=== PATIENT | male | born 1940 | race Caucasian/White ===

== ENCOUNTER 2019-02-06 10:02 | Observation (INO) ==
[2019-02-06] MEDS ORDERED: PANTOprazole 80 MG in DEXTROSE 5% 100 ML IV ONE (10:30)
[2019-02-06 10:56] LABS: Basophils # (auto) 0.03 K/uL (0-0.2); Basophils % (auto) 0.4 %; Eosinophils # (auto) 0.05 K/uL (0-0.5); Eosinophils % (auto) 0.7 %; Hematocrit (blood only) 31.4 % (42-52); Hemoglobin 10.9 g/dL (14.0-18.0); Immature Granulocytes # (auto) 0.01 K/uL (0.00-0.02); Immature Granulocytes % (auto) 0.1 %; Lymphocytes # (auto) 1.11 K/uL (1.2-3.4); Lymphocytes % (auto) 15.7 %; Mean Corpuscular Hemoglobin 31.4 pg (25-34); Mean Corpuscular Hgb Conc 34.7 g/dL (32-36); Mean Corpuscular Volume 90.5 fL (80-100); Mean Platelet Volume 10.8 fL (7.4-10.4); Monocytes # (auto) 0.84 K/uL (0.11-0.59); Monocytes % (auto) 11.9 %; Neutrophils # (auto) 5.04 K/uL (1.4-6.5); Neutrophils % (auto) 71.2 %; Platelet Count 179 K/uL (130-400); RDW Coefficient of Variation 14.1 % (11.5-14.5); RDW Standard Deviation 46.5 fL (36.4-46.3); Red Blood Count 3.47 M/uL (4.7-6.1); White Blood Count 7.08 K/uL (4.8-10.8)
[2019-02-06 11:14] LABS: Albumin Level 3.5 gm/dl (3.4-5.0); BUN Creatinine Ratio 22.5 (10-20); Calcium 8.7 mg/dl (8.5-10.1); Creatinine Clr Calc Pharmacy 51.4 ml/min; Est GFR (African American) 72.8; Est GFR (Non-African American) 62.8; INR 1.1 (0.9-1.1); Partial Thromboplastin Ratio 0.8; Partial Thromboplastin Time 22.1 Seconds (21.0-31.0); Potassium 4.1 mmol/L (3.5-5.1); Prothrombin Time 11.3 Seconds (9.0-12.0)
[2019-02-06 11:17] LABS: Albumin Globulin Ratio 1.1 (0.9-2); Bilirubin,Total 0.4 mg/dl (0.2-1); Globulin 3.2 gm/dl (2.5-4.0); Total Protein 6.7 gm/dl (6.4-8.2)
--- NOTE | 2019-02-06 11:23 | Gastrointestinal Consultation ---
Date of Consultation February 06, 2019 Assessment & Plan (1) Melena: (2) Anemia: (3) Status post dilation of esophageal narrowing: Pt is a 78 y/o male seen for anemia, melena, s/p series of esophageal dilation for Schatzki ring last done on 02/04/19 by up to 18mm by Dr. Matias. - NPO - PPI bolus and gtt - Plan for EGD eval tomorrow given pt ate solids this AM - Monitor H/H and trasnfuse prn - Will defer chest imaging at this time to r/o perforation, unless he develops chest pain symptoms Supervising Physician Co-Signing Physician Notes I saw and evaluated the patient. The patient underwent upper endoscopy with esophageal dilation on Monday. This was notable for a small rent at an esophageal ring. Yesterday the patient noted that he had dark sticky stool past 1 time. A blood count was performed showing that his hemoglobin had dropped from 45-32. The patient notes that today he had one additional passage of dark sticky stool and his hemoglobin has remained stable this morning. He denies having any nausea vomiting fevers chills or hematemesis. He did have a full breakfast this morning which consisted of oatmeal with 2 bananas. Physical examination Elderly male in no apparent distress Abdomen soft Impression: Patient with what appears to be bleeding after recent esophageal dilation. It is reassuring that the patient is not having hematemesis nor does he have evidence of perforation as he has no chest pain or abdominal discomfort. As the patient did have a full meal this morning we would recommend use of a Protonix drip. We will have the patient scheduled for upper endoscopy further evaluation of the melena. Recommendations N.p.o. Avoid anticoagulants Protonix drip Upper endoscopy arranged for next available which will be tomorrow morning History of Present Illness Reason for Consultation: Black stools; hx of EGD w dilation on 02/04 Requesting Physician: Dr. Paul Ibrahim Attending Physician: Dr. Gomez Freire History of Present Illness Pt is a 78 y/o male who presented to ED w c/o black stools x 2 days. Had EGD w dilation up to 18mm for Schatzki's ring on 02/04/[address] Matias. Yesterday he was having BM and noticed black, sticky stools w some dark blood around it. He also had associated symptoms of light headedness, feeling well. Denies any CP, SOB, abd pain, n/v. He had total of 2 similar looking black stools yesterday and again today. He denies being on blood thinners, noted ASA 325mg use but reports hasn't been on it for years. He does take Ferrous Sulfate 1 tab but hasn't used this in months. Denies use of Peptobismol. Denies NSAIDs. Upon eval, blood ct showed H/H 10.9/31.4, PLt 179, INR 1.1. BUN mildly up at 25. H/H yesterday (outpt) He had been able to eat and denies any abd pain or chest pain these last few d ays. He last ate around 8AM today - oatmeals Allergies Allergy/AdvReac Type Severity Reaction Status Date / Time No Known Allergies Allergy Unverified 02/06/19 10:33 Home Medications Home Medications Medication Instructions Recorded Confirmed Type allopurinol 100 mg PO DAILY 02/06/19 02/06/19 History amlodipine 10 mg PO DAILY 02/06/19 02/06/19 History aspirin, buffered 325 mg PO DAILY 02/06/19 02/06/19 History coenzyme Q10 [Co Q-10] 0 mg PO DAILY 02/06/19 02/06/19 History cyanocobalamin (vitamin B-12) 0 mcg PO DAILY 02/06/19 02/06/19 History [Vitamin B-12] latanoprost 1 drp OPHTHALMIC (EYE) PM 02/06/19 02/06/19 History Patient History Medical History Gout (Chronic) Schatzki's ring (Chronic) HTN (hypertension) (Chronic) Schatzki's ring Family History Other No significant family history Social History Feels Safe at Home: Yes Smoking Status: Former smoker Review of Systems Review of Systems: All systems reviewed & are unremarkable except as noted in HPI & below Physical Exam Constitutional: WD/WN, vitals as above well groomed, cooperative and comfortable Eyes: PERRL, conjunctivae normal, anicteric sclerae ENMT: external ear and nose normal, oropharynx normal Respiratory: normal respiratory effort, lungs clear to auscultation Cardiovascular: RRR, no murmur, no edema Gastrointestinal (Abdomen): normal bowel sounds, soft, nontender, no hepatosplenomegaly Skin: no rashes, warm and dry no jaundice Neurologic: Motor/Sensory: no asterixis Psychiatric: A+Ox3, euthymic affect Lymphatic: no lymphedema Results & Data Vital Signs (Past 12 Hours) Vital Signs Temp Pulse Resp BP Pulse Ox 02/06/19 10:08 36.6 C 37 L 20 112/68 100 Laboratory Results 02/06/19 02/06/19 02/06/19 10:35 10:35 10:35 WBC 7.08 RBC 3.47 L Hgb 10.9 L Hct 31.4 L MCV 90.5 MCH 31.4 MCHC 34.7 RDW Std Deviation 46.5 H RDW Coeff of Izabel 14.1 Plt Count 179 MPV 10.8 H Immature Gran % (Auto) 0.1 Neut % (Auto) 71.2 Lymph % (Auto) 15.7 [place] % (Auto) 11.9 Eos % (Auto) 0.7 Baso % (Auto) 0.4 Immature Gran # (Auto) 0.01 Neut # (Auto) 5.04 Lymph # (Auto) 1.11 L [place] # (Auto) 0.84 H Eos # (Auto) 0.05 Baso # (Auto) 0.03 PT 11.3 INR 1.1 APTT 22.1 PTT Ratio 0.8 Sodium 140 Potassium 4.1 Chloride 107 Carbon Dioxide 27 Anion Gap 6.0 BUN 25 H Creatinine 1.11 Est Cr Clr Drug Dosing 51.4 Est GFR ( Amer) 72.8 Est GFR (Non-Af Amer) 62.8 BUN/Creatinine Ratio 22.5 H Glucose 108 H Calcium 8.7 Total Bilirubin 0.4 AST 23 ALT 32 Alkaline Phosphatase 45 Total Protein 6.7 Albumin 3.5 Globulin 3.2 Albumin/Globulin Ratio 1.1
--- NOTE | 2019-02-06 11:44 | Emergency Department Note ---
Entered by Ani Smalls acting as a scribe for Paul Marie DO History of Present Illness General Chief complaint: Illness Stated complaint: BLEEDING THROAT Time Seen by Provider: 02/06/19 10:04 Source: patient History of Present Illness Onset (ago): day(s) 1 Location: abdomen Pain Consistency: + other (episode) Quality: + other (blood in stool ) Associated symptoms: + weakness The patient is a 78 year old male who presents to the Emergency Room with complaints of an episode of blood in the patient's stool that began yesterday morning. The patient reports he got his throat stretched on January [address] Matias, and the patient believes the blood in the stool may be a result from that. The patient also notes he had a blood test yesterday done at [facility] that showed he was anemic. The patient also reports of weakness. Home Medications Home Medications Medication Instructions Recorded Confirmed Type allopurinol 100 mg PO DAILY 02/06/19 02/06/19 History amlodipine 10 mg PO DAILY 02/06/19 02/06/19 History aspirin, buffered 325 mg PO DAILY 02/06/19 02/06/19 History coenzyme Q10 [Co Q-10] 0 mg PO DAILY 02/06/19 02/06/19 History cyanocobalamin (vitamin B-12) 0 mcg PO DAILY 02/06/19 02/06/19 History [Vitamin B-12] latanoprost 1 drp OPHTHALMIC (EYE) PM 02/06/19 02/06/19 History Allergies Allergy/AdvReac Type Severity Reaction Status Date / Time No Known Allergies Allergy Unverified 02/06/19 10:33 Past Med/Surg History Medical History Schatzki's ring Family History Other No significant family history Social History Feels Safe at Home: Yes Smoking Status: Former smoker Review of Systems See HPI for pertinent positives & negatives. and A total of 10 systems reviewed and were otherwise negative Physical Exam Vital Signs Vital Signs - 24 hr 02/06/19 10:08 Temperature 36.6 C Temperature Source Oral Sepsis Action Taken by Nursing No Action Required Pulse Rate 37 L Respiratory Rate 20 Respiratory Effort / Characteristics Non-Labored Respiratory Depth Normal Respiratory Pattern Regular Blood Pressure 112/68 Blood Pressure Mean 82 Pulse Oximetry 100 Oxygen Delivery Method Room Air CONSTITUTIONAL/VITAL SIGNS: Reviewed / noted above. GENERAL: Non-toxic in appearance. INTEGUMENTARY: Warm, dry, and [place]. HEAD: Normocephalic. EYES: without scleral icterus or trauma. ENT/OROPHARYNX: clear and moist. LYMPHADENOPATHY/NECK: Is supple without lymphadenopathy or meningismus. RESPIRATORY: Lungs clear and equal. CARDIOVASCULAR: Regular rate and rhythm. GI/ABDOMEN: Soft and nontender. No organomegaly or pulsatile mass. No rebound or guarding. Normal bowel sounds. RECTAL: Dark, bloody heme positive stool. EXTREMITIES: Warm and well perfused. BACK: No CVA tenderness. NEUROLOGICAL: Intact without focal deficits. PSYCHIATRIC: normal affect. MUSCULOSKELETAL: Normally developed with good muscle tone. Course 1014: Past medical records reviewed. The patient was evaluated in room A3. A complete history and physical exam was performed. 1107: I reevaluated and updated the patient. 1112: I discussed the patient's case with Leonie DOMINGUEZ. She recommends overnight observation. 1117: I reviewed the patient's case with Tamiko Rodriguez. Dr. Jamin Rodriguez will evaluate the patient for further management. Consultations Consultation #1: I discussed the patient's case with Leonie DOMINGUEZ. She recommends overnight observation. Time: 11:12 Consultation #2: I reviewed the patient's case with Tamiko Rodriguez. Dr. Jamin Rodriguez will evaluate the patient for further management. Time: 11:17 Administered Medications Discontinued Medications Pantoprazole Sodium 80 mg/ (Dextrose) 120 mls @ 480 mls/hr IV NOW ONE Stop: 02/06/19 10:44 Last Admin: 02/06/19 11:33 Dose: 480 mls/hr Documented by: [id number] Medical Decision Making Differential Diagnosis Differential diagnosis: Etiologies such as diverticulosis, AVM, coagulopathy, colitis, inflammatory bowel disease, malignancy, Arlin-Philip tear, esophagitis, peptic ulcer disease, variceal bleed, gastritis, epistaxis, fissure, hemorrhoids, aswell as others were entertained. Medical Records Attestation: I reviewed the patient's medical records. Home Medications Current Medication List: was personally reviewed by me Laboratory Data Attestation: I reviewed the patient's lab results. Result diagrams: 02/06/19 10:35 02/06/19 10:35 Lab Results 02/06/19 02/06/19 02/06/19 Range/Units 10:35 10:35 10:35 WBC 7.08 (4.8-10.8) K/uL RBC 3.47 L (4.7-6.1) M/uL Hgb 10.9 L (14.0-18.0) g/dL Hct 31.4 L (42-52) % MCV 90.5 (80-100) fL MCH 31.4 (25-34) pg MCHC 34.7 (32-36) g/dL RDW Std Deviation 46.5 H (36.4-46.3) fL RDW Coeff of Izabel 14.1 (11.5-14.5) % Plt Count 179 (130-400) K/uL MPV 10.8 H (7.4-10.4) fL Immature Gran % (Auto) 0.1 % Neut % (Auto) 71.2 % Lymph % (Auto) 15.7 % [place] % (Auto) 11.9 % Eos % (Auto) 0.7 % Baso % (Auto) 0.4 % Immature Gran # (Auto) 0.01 (0.00-0.02) K/uL Neut # (Auto) 5.04 (1.4-6.5) K/uL Lymph # (Auto) 1.11 L (1.2-3.4) K/uL [place] # (Auto) 0.84 H (0.11-0.59) K/uL Eos # (Auto) 0.05 (0-0.5) K/uL Baso # (Auto) 0.03 (0-0.2) K/uL PT 11.3 (9.0-12.0) Seconds INR 1.1 (0.9-1.1) APTT 22.1 (21.0-31.0) Seconds PTT Ratio 0.8 Sodium 140 (136-145) mmol/L Potassium 4.1 (3.5-5.1) mmol/L Chloride 107 (98-107) mmol/L Carbon Dioxide 27 (21-32) mmol/L Anion Gap 6.0 (3-11) BUN 25 H (7-18) mg/dl Creatinine 1.11 (0.6-1.4) mg/dl Est Cr Clr Drug Dosing 51.4 ml/min Est GFR ( Amer) 72.8 Est GFR (Non-Af Amer) 62.8 BUN/Creatinine Ratio 22.5 H (10-20) Glucose 108 H (70-99) mg/dl Calcium 8.7 (8.5-10.1) mg/dl Total Bilirubin 0.4 (0.2-1) mg/dl AST 23 (15-37) U/L ALT 32 (12-78) U/L Alkaline Phosphatase 45 (45-117) U/L Total Protein 6.7 (6.4-8.2) gm/dl Albumin 3.5 (3.4-5.0) gm/dl Globulin 3.2 (2.5-4.0) gm/dl Albumin/Globulin Ratio 1.1 (0.9-2) ECG Data Attestation: I personally reviewed and interpreted this ECG as follows: Indication: weakness Rate (beats per minute): 64 Rhythm: sinus rhythm Findings: + PVC; no ST elevation MDM Narrative This is a 78-year-old male who presents to the ED with a chief complaint of rectal bleeding. The patient had his esophagus dilated on Monday. The patient states that he has been feeling somewhat weak and has noticed rectal bleeding since that time. The patient had his hemoglobin checked yesterday and it was 11.0. It was 15.6 on January 12. Because of this change in hemoglobin and his symptoms, he was sent in for evaluation. The patient does have some gross dark blood on rectal exam. His hemoglobin today is 10.5. Chemistry panel was otherwise unremarkable. The patient was seen by the GI service, nurse practitioner Agusto, saw the patient in the ED. The patient will be observed o vernight for further evaluation and care by the hospitalist service. Impression & Plan Acute upper GI bleed, Anemia Discharge Plan Visit Data Chief Complaint: Illness Stated Complaint: BLEEDING THROAT ED Provider: Paul Marie Discharge Problem: Acute upper GI bleed, Anemia Patient Disposition: Being Evaluated by Hospitalist Forms Stand Alone Forms: My [facility] Prescriptions Prescriptions: No Action latanoprost 0.005 % Drops 1 drp OPHTHALMIC (EYE) PM RF: 0 cyanocobalamin (vitamin B-12) [Vitamin B-12] 1,000 mcg Tablet PO DAILY RF: 0 aspirin, buffered 325 mg Tablet 325 mg PO DAILY RF: 0 allopurinol 100 mg Tablet 100 mg PO DAILY RF: 0 amlodipine 10 mg Tablet 10 mg PO DAILY RF: 0 coenzyme Q10 [Co Q-10] 100 mg Capsule PO DAILY RF: 0 Referrals Referrals: Jonnathan Darby [Primary Care Provider] - The scribe's documentation has been prepared under my direction and personally reviewed by me in its entirety. I confirm that the note above accurately reflects all work, treatment, procedures, and medical decision making performed by me.
[2019-02-06] MEDS: PANTOprazole 40 MG in DEXTROSE 5% 100 ML IV SCH ×3 (11:51→22:41)
--- NOTE | 2019-02-06 12:11 | History & Physical Report ---
Date of Service February 06, 2019 Assessment & Plan (1) Melena: (2) Status post dilation of esophageal narrowing: Pt is 78 y/o M with PMH HTN, gout, Schatzki ring presented with c/o melena started yesterday. Reported 2 black color formed stools yesterday with red color toilet water and 1 formed black color stool today. Yesterday reported dizziness, diaphoresis. Hx Schatzki ring, H/O upper endoscopy with dilation on 01/22/2019 Dr Matias with reported small tear at 15 mm and moderate mucosal disruption after 16 mm on 02/04/2019. 02/04/19 upper endoscopy with dilation with reported mild mucosal disruption. In ER pt afebrile, BP: 112/68, no leukocytosis, H/H: 10. (yesterday H/H: , unsure what pt's baseline is), BUN: 25, Cr: 1.1, GFR: 62 -Protonix drip -NPO -Monitor H&H -Type and cross and hold -GI consult, recommends NPO and planned EGD tomorrow -Monitor CBC, BMP (3) Bradycardia: Initial pulse recorded 37 at ER triage. During ER course pulse in 60's. Pt without any current dizziness, CP, SOB. Is alert and oriented -Monitor on tele (4) HTN (hypertension): -Continue amlodipine with holding parameters (5) Gout: Pt denies recent flares Previously prescribed allopurinol, however reports has not been using for while DVT Prophylaxis -SCDs Full Code as per discussion with pt Follows with Dr Jonnathan Darby in [place] for routine care Pt was seen and care coordinated with Dr Cespedes. See addendum History of Present Illness Chief Complaint: Melena Primary Care Provider: Jonnathan Darby Pt is 78 y/o M with PMH HTN, gout, Schatzki ring presented to ER with c/o melena started yesterday. Patient with history Schatzki ring and on 01/22/2019 had upper endoscopy with dilation by Dr Matias with reported small tear at 15 mm and moderate mucosal disruption after 16 mm on 02/04/2019. Also with upper endoscopy with dilation with reported mild mucosal disruption. Pt reports after procedure he was able to swallow without difficulty and has been eating solid and liquid foods without any dysphagia. Reports had 2 BMs yesterday which were black in coloration and had red-colored tinge to toilet water. Patient states yesterday he felt dizzy and sweaty when having BM. Denies any syncope. This morning with formed BM also reported as dark black color stool. Denies any abdominal pain, nausea or vomiting. States feels tired. Patient states yesterday took aspirin 325 mg. Reports his been taking this medication for years at prior recommendation PCP. Patient reports this morning took 1 tablet of ibuprofen. Denies taking NSAIDs usually. Usually drinks 1 beer a day, last use 02/02/19. reports ate this morning. Pt reports hx colonscopy [place] [address] Child at [facility]. Denies fever/chills, CATES, dizziness, syncope, vision changes, neck pain, CP, SOB, orthopnea, palpitations, cough, sore throat, choking, otalgia, rhinorrhea, paresthesias, weakness, extremity weakness, extremity edema, rashes, urinary symptoms. Allergies Allergy/AdvReac Type Severity Reaction Status Date / Time No Known Allergies Allergy Unverified 02/06/19 10:33 Home Medications Home Medications Medication Instructions Recorded Confirmed Type allopurinol 100 mg PO DAILY 02/06/19 02/06/19 History amlodipine 10 mg PO DAILY 02/06/19 02/06/19 History aspirin, buffered 325 mg PO DAILY 02/06/19 02/06/19 History coenzyme Q10 [Co Q-10] 0 mg PO DAILY 02/06/19 02/06/19 History cyanocobalamin (vitamin B-12) 0 mcg PO DAILY 02/06/19 02/06/19 History [Vitamin B-12] latanoprost 1 drp OPHTHALMIC (EYE) PM 02/06/19 02/06/19 History Past Med/Surg History Medical History Gout (Chronic) Schatzki's ring (Chronic) HTN (hypertension) (Chronic) Surgical History History of lumbar surgery (Chronic) History of cholecystectomy (Chronic) History of esophagogastroduodenoscopy (EGD) (Chronic) 01/22/19, 02/04/[address] Matias Family History Mother Stroke Social History Feels Safe at Home: Yes Smoking Status: Former smoker Smoking End Date: ; Hx Alcohol Use: Yes (1 beer a day) Hx Substance Use: No Review of Systems Review of Systems: All systems reviewed & are unremarkable except as noted in HPI & below Physical Exam Physical Exam: General: no distress, WDWN Head: normocephalic, atraumatic Eyes: PERRL, EOM's intact, conjunctiva non-injected, anicteric ENT: normal inspection external ears, nose, mucous membranes moist Neck: supple, trachea midline, non-tender Lungs: clear, no respiratory distress, no wheezing/rhonchi/rales CV: RRR, no murmur, no pretibial edema Abd: normal BS, soft, non-tender Ext: no cyanosis, no calf tenderness Neuro: A&O x 3, no focal deficits noted, normal affect Skin: warm, dry Results & Data Vital Signs (Past 12 Hours) Vital Signs Temp Pulse Pulse Resp BP Pulse Ox 02/06/19 11:52 67 67 17 97 02/06/19 10:08 36.6 C 37 L 20 112/68 100 Laboratory Results Short CBC 02/06/19 Range/Units 10:35 WBC 7.08 (4.8-10.8) K/uL Hgb 10.9 L (14.0-18.0) g/dL Hct 31.4 L (42-52) % Plt Count 179 (130-400) K/uL BMP 02/06/19 10:35 Sodium 140 Potassium 4.1 Chloride 107 Carbon Dioxide 27 BUN 25 H Creatinine 1.11 Glucose 108 H Calcium 8.7 Liver Function 02/06/19 Range/Units 10:35 Total Bilirubin 0.4 (0.2-1) mg/dl AST 23 (15-37) U/L ALT 32 (12-78) U/L Alkaline Phosphatase 45 (45-117) U/L Albumin 3.5 (3.4-5.0) gm/dl ECG Rate (beats per minute): 64 Rhythm: sinus rhythm Findings: + PVC Code Status & VTE Plan VTE Prophylaxis Plan VTE Prophylaxis will be ordered: Yes Supervising Physician Co-Signing Physician Notes Patient is a 78-year-old male with history of Schatzki's ring who recently had endoscopic and dilatation of the ring for dysphasia by Dr. Matias 2 days ago presents with history of melena and bright red blood per rectum since 2 days duration. Patient had mild mucosal disruption on prior endoscopy. He admits to taking 1 dose of ibuprofen for chronic pain. Patient is also on aspirin 325 mg daily. He states having dizziness yesterday associated with diaphoresis. Patient denies any history of nausea vomiting, chest pain, dysphagia, shortness of breath, diarrhea, abdominal pain currently. Last aspirin dose was yesterday. On exam patient is moderately built and nourished, no apparent distress, normocephalic atraumatic, lungs are clear to auscultation, S1-S2, no murmur, abdomen soft, nontender, normal bowel sounds, no pedal edema, grossly no focal neurological deficits. Patient is admitted for management of melena. Melena likely secondary to mucosal tear from endoscopic procedure for dilatation of Schatzki's ring. Plan to keep him n.p.o., start on Protonix drip, IV fluids. Type and cross, monitor H&H and transfuse PRBCs as needed. No evaluation of BUN, or history of diarrhea---Likely no significant GI bleed. Consulted GI for endoscopic evaluation tomorrow. Avoid NSAIDs, hold aspirin. Also avoid any anticoagulants. I personally reviewed the record. Patient is interviewed and examined at bedside. Patient's care is coordinated with Tamiko Almanza. Please refer to the documentation above for details of patient's presentation and for discussion of other issues.
[2019-02-06] MEDS ORDERED: ACETAMINOPHEN 325 MG TAB PO PRN (13:17)
[2019-02-06] MEDS ORDERED: ONDANSETRON INJ 2 MG/ML 2 ML VIAL IV PRN (13:17)
[2019-02-06] MEDS ORDERED: SODIUM CHLORIDE 0.9% 250 ML IV PRN (13:17)
[2019-02-06 14:24] LABS: Hematocrit (blood only) 28.5 % (42-52); Hemoglobin 9.9 g/dL (14.0-18.0)
[2019-02-06] MEDS: D5W AND NSS 1,000 ML IV SCH (14:26)
[2019-02-06] MEDS: LATANOPROST 0.005% OP SOLN 2.5 ML BTL OP SCH (21:14)
[2019-02-06 22:22] LABS: Hematocrit (blood only) 29.5 % (42-52); Hemoglobin 10.3 g/dL (14.0-18.0)
[2019-02-07] MEDS: D5W AND NSS 1,000 ML IV SCH (02:56)
[2019-02-07] MEDS: PANTOprazole 40 MG in DEXTROSE 5% 100 ML IV SCH ×4 (03:45→19:37)
[2019-02-07 06:56] LABS: Hematocrit (blood only) 28.8 % (42-52); Hemoglobin 9.8 g/dL (14.0-18.0); Mean Corpuscular Volume 91.1 fL (80-100); Mean Platelet Volume 10.8 fL (7.4-10.4); Platelet Count 151 K/uL (130-400); RDW Coefficient of Variation 14.1 % (11.5-14.5); RDW Standard Deviation 47.3 fL (36.4-46.3); Red Blood Count 3.16 M/uL (4.7-6.1); White Blood Count 4.33 K/uL (4.8-10.8)
[2019-02-07 07:24] LABS: BUN Creatinine Ratio 12.1 (10-20); Calcium 8.2 mg/dl (8.5-10.1); Creatinine Clr Calc Pharmacy 53.9 ml/min; Est GFR (Non-African American) 66.4; Potassium 4.1 mmol/L (3.5-5.1)
--- NOTE | 2019-02-07 08:02 | Anesthesiology Consultation ---
Date of Service February 07, 2019 Assessment & Plan (1) Encounter for pre-operative examination: Chart Review Chart Review: Acceptable Risk for Surgery, Patient NOT seen in Pre Admission Testing and entry level staff accountant initiated Consults Requested none History Surgery Operation Date: 02/07/19 08:30 Proposed Procedures p Esophagogastroduodenoscopy Dr Tani Freire Height/Weight Height: 5 ft 8 in Weight: 67.4 kg Allergies Allergy/AdvReac Type Severity Reaction Status Date / Time No Known Allergies Allergy Unverified 02/06/19 10:33 Medications Home Medications Medication Instructions Recorded Confirmed Last Taken allopurinol 100 mg PO DAILY 02/06/19 02/06/19 Unknown amlodipine 10 mg PO DAILY 02/06/19 02/06/19 02/06/19 aspirin, buffered 325 mg PO DAILY 02/06/19 02/06/19 02/05/19 coenzyme Q10 [Co Q-10] 0 mg PO DAILY 02/06/19 02/06/19 02/06/19 cyanocobalamin (vitamin B-12) 0 mcg PO DAILY 02/06/19 02/06/19 02/06/19 [Vitamin B-12] latanoprost 1 drp OPHTHALMIC (EYE) PM 02/06/19 02/06/19 02/05/19 Active Medications Generic Name Dose Route Start Last Admin Trade Name Freq PRN Reason Stop Dose Admin Pantoprazole Sodium 40 mg/ 100 mls @ 20 mls/hr 02/06/19 10:30 02/07/19 08:01 Dextrose IV 03/08/19 10:29 0 mls/hr Q5H SYED Infusion Dextrose/Sodium Chloride 1,000 mls @ 80 mls/hr 02/06/19 13:30 02/07/19 08:01 D5w And Nss IV 02/07/19 14:29 0 mls/hr .[id number] SYED Infusion Latanoprost 1 drops 02/06/19 21:00 02/06/19 21:14 Xalatan Oph OP 03/08/19 20:59 1 drops PM SYED Administration Past Medical History Medical History Gout (Chronic) Schatzki's ring (Chronic) HTN (hypertension) (Chronic) Past Family History Family History Mother Stroke Past Surgical History Surgical History History of lumbar surgery (Chronic) History of cholecystectomy (Chronic) History of esophagogastroduodenoscopy (EGD) (Chronic) 01/22/19, 02/04/[address] Matias Social History Smoking Status: Former smoker Smoking End Date: Hx Alcohol Use: Yes Alcohol type: beer alcohol intake frequency: 0-2 drinks per day Hx Substance Use: No Physical Exam Vital Signs Last Vital Signs Temp 36.5 C 02/07/19 07:54 Pulse 59 L 02/07/19 07:54 Resp 18 02/07/19 07:54 BP 105/56 L 02/07/19 07:54 Pulse Ox 96 02/07/19 07:54 Testing Laboratory Results 02/07/19 06:25 02/07/19 06:25 PT 11.3 Seconds (9.0-12.0) 02/06/19 10:35 INR 1.1 (0.9-1.1) 02/06/19 10:35 APTT 22.1 Seconds (21.0-31.0) 02/06/19 10:35 Blood Type O Negative 02/06/19 10:35 Antibody Screen NEGATIVE 02/06/19 10:35 Electrocardiogram Date: 02/06/19 Findings: + NSR @ (64) Frequent PVCs
[2019-02-07] MEDS ORDERED: PROPOFOL IV EMULSION 10 MG/ML 20 ML VIAL IV ONE (08:22)
[2019-02-07] MEDS ORDERED: LIDOCAINE HCL 2% 2 ML VIAL/AMP(20MG/ML) INFIL ONE (08:22)
--- NOTE | 2019-02-07 08:26 | History & Physical Bridge Note ---
Date of Service February 07, 2019 History & Physical Bridge Note I have examined the patient, reviewed the History & Physical and in the interval since the performance of the History & Physical I have noted the following changes of clinical significance: no changes noted. We are planning to do upper endoscopy today for evaluation of melena that occurred after recent esophageal dilation. The patient reports that he is feeling well today has no chest pain abdominal pain or recurrence of melena overnight. We have discussed the risks to include bleeding, infection, perforation, pain and need for follow-up exams.
[2019-02-07] MEDS ORDERED: ePHEDrine sulfate 50 MG/ML AMP ONE (08:57)
--- NOTE | 2019-02-07 09:08 | GI REPORT ---
Patient Name: Ten Still Procedure Date: 02/07/2019 8:39 AM Date of : 1940 Admit Type: Inpatient Age: 78 Gender: Male Attending MD: Gomez Freire DO Procedure: Upper GI endoscopy Providers: Gomez Freire DO Referring MD: Trisha Mayes, Juan Manuel Matias MD Indications: Melena Medicines: Monitored Anesthesia Care Complications: No immediate complications. Estimated blood loss: Minimal. Estimated Blood Loss: Estimated blood loss was minimal. Procedure: Pre-Anesthesia Assessment: - Prior to the procedure, a History and Physical was performed, and patient medications, allergies and sensitivities were reviewed. The patient's tolerance of previous anesthesia was reviewed. - The risks and benefits of the procedure and the sedation options and risks were discussed with the patient. All questions were answered and informed consent was obtained. - Patient identification and proposed procedure were verified prior to the procedure by the physician, the nurse and the contract design agent. The procedure was verified in the procedure room. - Pre-procedure physical examination revealed no contraindications to sedation. - ASA Grade Assessment: III - A patient with severe systemic disease. - After reviewing the risks and benefits, the patient was deemed in satisfactory condition to undergo the procedure. - The anesthesia plan was to use monitored anesthesia care (MAC). - Immediately prior to administration of medications, the patient was re-assessed for adequacy to receive sedatives. - The heart rate, respiratory rate, oxygen saturations, blood pressure, adequacy of pulmonary ventilation, and response to care were monitored throughout the procedure. - The physical status of the patient was re-assessed after the procedure. After obtaining informed consent, the endoscope was passed under direct vision. Throughout the procedure, the patient's blood pressure, pulse, and oxygen saturations were monitored continuously. The Endoscope was introduced through the mouth, and advanced to the third part of duodenum. The upper GI endoscopy was accomplished without difficulty. The patient tolerated the procedure well. Findings: The upper third of the esophagus and middle third of the esophagus were normal. A non-obstructing Schatzki ring was found at the gastroesophageal junction. A 6 mm non-bleeding Arlin-Philip tear with stigmata of recent bleeding was found at the level of the Schatzkis ring. Coagulation for hemostasis using bipolar probe was successful. Estimated blood loss was minimal. A small hiatal hernia was found. The proximal extent of the gastric folds (end of tubular esophagus) was 40 cm from the incisors. The hiatal narrowing was 42 cm from the incisors. The Z-line was 40 cm from the incisors. Diffuse mild inflammation characterized by erythema and granularity was found in the entire examined stomach. The examined duodenum was normal. Impression: - Normal upper third of esophagus and middle third of esophagus. - Non-obstructing Schatzki ring. - Arlin-Philip tear (likely related to recent dilation). Treated with bipolar cautery. - Gastritis. - Normal examined duodenum. - No specimens collected. Recommendation: - [facility]. - Full liquid diet today. - Use Protonix (pantoprazole) 40 mg PO BID for 4 weeks. - Would suggest overnight monitoring in case of rebleeding. Gomez Freire D.O. Gomez Freire, 02/07/2019 9:07:39 AM This report has been signed electronically. Note Initiated On: 02/07/2019 8:39 AM Number of Addenda: 0 I attest to the content of the Intraoperative Record and orders documented therein, exceptions below {[id number]}
--- NOTE | 2019-02-07 09:30 | Anesthesiology Progress Note ---
Date of Service February 07, 2019 Anesthesia Post Procedure Vital Signs Vital Signs: Temp Pulse Pulse Resp BP BP Pulse Ox 02/07/19 09:14 74 16 105/47 L 95 02/07/19 09:10 79 16 115/55 L 93 02/07/19 08:08 36.6 C 62 16 121/71 95 02/07/19 07:54 36.5 C 59 L 18 105/56 L 96 02/07/19 05:21 36.8 C 54 L 18 120/72 95 02/07/19 01:47 52 L 02/06/19 23:00 36.6 C 49 L 18 111/73 94 02/06/19 19:00 36.7 C 55 L 20 108/70 94 02/06/19 15:26 60 02/06/19 13:18 36.5 C 58 L 18 110/50 L 94 02/06/19 12:59 99 02/06/19 12:58 62 17 117/63 99 02/06/19 12:07 63 18 118/70 98 02/06/19 11:52 67 67 17 97 02/06/19 10:08 36.6 C 37 L 20 112/68 100 Transfer of Care Handoff Completed per policy Notes Mental Status: alert / awake / arousable and participated in evaluation Nausea / Vomiting: adequately controlled Pain: adequately controlled Airway Patency, RR, SpO2: stable & adequate BP & HR: stable & adequate Hydration State: stable & adequate Anesthetic Complications: no major complications apparent and Pt Satisfied with anesthetic care
[2019-02-07] MEDS: AMLODIPINE BESYLATE 5 MG TAB PO SCH (10:29)
--- NOTE | 2019-02-07 10:44 | Communication Note ---
Date of Service: February 07, 2019 The patient underwent upper endoscopy this morning. He was found to have a superficial tear of his Schatzki's ring. There appeared to be evidence of recent bleeding. We treated this with thermal therapy. Recommendations Full liquid diet today Protonix 40 mg twice daily for 4 weeks then 1 time daily thereafter If stable overnight patient can be discharged tomorrow.
--- NOTE | 2019-02-07 14:19 | Hospitalist Progress Note ---
Date of Service February 07, 2019 Assessment & Plan (1) Melena: Secondary to bleeding from Arlin-Philip tear Status post EGD-no evidence of active bleeding Denies any symptoms (2) Status post dilation of esophageal narrowing: Pt is 78 y/o M with PMH HTN, gout, Schatzki ring presented with c/o melena started yesterday. Reported 2 black color formed stools yesterday with red color toilet water and 1 formed black color stool today. Yesterday reported dizziness, diaphoresis. Hx Schatzki ring, H/O upper endoscopy with dilation on 01/22/2019 Dr Matias with reported small tear at 15 mm and moderate mucosal disruption after 16 mm on 02/04/2019. 02/04/19 upper endoscopy with dilation with reported mild mucosal disruption. As above Clears have been started and will advance as tolerated PPI twice daily for 4 weeks Likely discharge tomorrow (3) Bradycardia: Initial pulse recorded 37 at ER triage. During ER course pulse in 60's. Pt without any current dizziness, CP, SOB. Is alert and oriented -Monitor on tele (4) HTN (hypertension): -Continue amlodipine with holding parameters (5) Gout: Pt denies recent flares Previously prescribed allopurinol, however reports has not been using for while DVT Prophylaxis -SCDs Full Code as per discussion with pt Follows with Dr Jonnathan Darby in [place] for routine care Subjective 02/07 The patient was seen and examined in medical telemetry unit He is a status post EGD He denies any symptoms following the procedure and wants to go home He was noted to have a Arlin-Philip tear esophagus which is not bleeding anymore We will get clears today and likely home tomorrow Review of Systems Review of Systems: All systems reviewed and are unremarkable except as noted. Physical Exam Physical Exam: Lying in bed comfortably Constitutional: well developed, well nourished, well groomed, cooperative and comfortable; not obese Eyes: PERRL, conjunctivae normal, anicteric sclerae ENMT: external ear and nose normal, oropharynx normal Mouth: + small oral opening; no TMJ abnormality Mallampati Class: III Neck: normal visual inspection; neck extension not limited Respiratory: normal respiratory effort Auscultation: lungs clear to auscultation bilaterally Cardiovascular: Rate/Rhythm: regular rate and regular rhythm Heart Sounds: no murmur Gastrointestinal (Abdomen): Inspection/Auscultation: abdomen normal to inspection and normal bowel sounds Percussion/Palpation: abdomen soft Skin: no rashes, warm and dry no jaundice Neurologic: moves all extremities; no focal motor deficits Motor/Sensory: no asterixis Psychiatric: A+Ox3, euthymic affect Orientation: alert and oriented x 3 Lymphatic: no lymphedema Results & Data Vital Signs (Past 12 Hours) Vital Signs Temp Pulse Pulse Resp BP Pulse Ox 02/07/19 12:28 36.3 C L 53 L 18 117/70 96 02/07/19 10:30 60 130/75 02/07/19 09:29 67 16 130/81 98 02/07/19 09:14 74 16 105/47 L 95 02/07/19 09:10 79 16 115/55 L 93 02/07/19 08:08 36.6 C 62 16 121/71 95 02/07/19 07:54 36.5 C 59 L 18 105/56 L 96 02/07/19 07:50 61 02/07/19 05:21 36.8 C 54 L 18 120/72 95 Laboratory Results Short CBC 02/06/19 02/06/19 02/07/19 Range/Units 14:06 22:09 06:25 WBC 4.33 L (4.8-10.8) K/uL Hgb 9.9 L 10.3 L 9.8 L (14.0-18.0) g/dL Hct 28.5 L 29.5 L 28.8 L (42-52) % Plt Count 151 (130-400) K/uL BMP 02/07/19 06:25 Sodium 143 Potassium 4.1 Chloride 111 H Carbon Dioxide 27 BUN 13 Creatinine 1.06 Glucose 122 H Calcium 8.2 L Medications Administered Current Inpatient Medications Acetaminophen (Tylenol) 650 mg PO Q4H PRN PRN Reason: Pain or Fever Stop: 03/08/19 13:16 Amlodipine Besylate (Norvasc) 10 mg PO DAILY [facility] Stop: 03/09/19 08:59 Last Admin: 02/07/19 10:29 Dose: 10 mg Documented by: Pantoprazole Sodium 40 mg/ (Dextrose) 100 mls @ 20 mls/hr IV Q5H [facility] Stop: 03/08/19 10:29 Last Infusion: 02/07/19 10:27 Dose: 20 mls/hr Documented by: Sodium Chloride (Nss) 250 mls @ 15 mls/hr IV .[id number] PRN PRN Reason: For Transfusion Stop: 03/08/19 13:16 Dextrose/Sodium Chloride (D5w And Nss) 1,000 mls @ 80 mls/hr IV .[id number] [facility] Stop: 02/07/19 14:29 Last Infusion: 02/07/19 10:27 Dose: 80 mls/hr Documented by: Latanoprost (Xalatan Oph) 1 drops OP PM [facility] Stop: 03/08/19 20:59 Last Admin: 02/06/19 21:14 Dose: 1 drops Documented by: Ondansetron HCl (Zofran) 4 mg IV Q6H PRN PRN Reason: Nausea Stop: 03/08/19 13:16
[2019-02-07] MEDS ORDERED: Nursing to Pharmacy Communication ONE (17:55)
[2019-02-07] MEDS: LATANOPROST 0.005% OP SOLN 2.5 ML BTL OP SCH (20:20)
[2019-02-08] MEDS: PANTOprazole 40 MG in DEXTROSE 5% 100 ML IV SCH ×3 (00:37→10:18)
[2019-02-08 07:06] LABS: Basophils # (auto) 0.03 K/uL (0-0.2); Basophils % (auto) 0.6 %; Eosinophils # (auto) 0.29 K/uL (0-0.5); Eosinophils % (auto) 5.7 %; Hematocrit (blood only) 26.9 % (42-52); Hemoglobin 9.4 g/dL (14.0-18.0); Lymphocytes % (auto) 19.7 %; Mean Corpuscular Hemoglobin 31.5 pg (25-34); Mean Corpuscular Hgb Conc 34.9 g/dL (32-36); Mean Corpuscular Volume 90.3 fL (80-100); Mean Platelet Volume 10.4 fL (7.4-10.4); Monocytes # (auto) 0.62 K/uL (0.11-0.59); Monocytes % (auto) 12.2 %; Neutrophils # (auto) 3.13 K/uL (1.4-6.5); Neutrophils % (auto) 61.8 %; Platelet Count 154 K/uL (130-400); RDW Standard Deviation 46.4 fL (36.4-46.3); Red Blood Count 2.98 M/uL (4.7-6.1); White Blood Count 5.07 K/uL (4.8-10.8)
[2019-02-08 07:43] LABS: BUN Creatinine Ratio 8.1 (10-20); Calcium 8.2 mg/dl (8.5-10.1); Est GFR (African American) 83.6; Est GFR (Non-African American) 72.1; Potassium 3.7 mmol/L (3.5-5.1)
[2019-02-08 07:44] VITALS: O2SAT 97
[2019-02-08] MEDS: AMLODIPINE BESYLATE 5 MG TAB PO SCH (08:20)
--- NOTE | 2019-02-08 10:57 | Hospitalist Progress Note ---
Date of Service February 08, 2019 Assessment & Plan (1) Melena: Secondary to bleeding from Arlin-Philip tear Status post EGD-no evidence of active bleeding Denies any symptoms No more black stool (2) Status post dilation of esophageal narrowing: Pt is 78 y/o M with PMH HTN, gout, Arielki ring presented with c/o melena started yesterday. Reported 2 black color formed stools yesterday with red color toilet water and 1 formed black color stool today. Yesterday reported dizziness, diaphoresis. Hx Schatzki ring, H/O upper endoscopy with dilation on 01/22/2019 Dr Matias with reported small tear at 15 mm and moderate mucosal disruption after 16 mm on 02/04/2019. 02/04/19 upper endoscopy with dilation with reported mild mucosal disruption. As above Clears have been started and will advance as tolerated PPI twice daily for 4 weeks Likely discharge tomorrow Has been tolerating regular diet and has been ambulating in the hallway Will be discharged this afternoon (3) Bradycardia: Initial pulse recorded 37 at ER triage. During ER course pulse in 60's. Pt without any current dizziness, CP, SOB. Is alert and oriented -Monitor on tele -no bradycardia noted (4) HTN (hypertension): -Continue amlodipine with holding parameters -Blood pressure is controlled (5) Gout: Pt denies recent flares Previously prescribed allopurinol, however reports has not been using for while DVT Prophylaxis -SCDs Full Code as per discussion with pt Follows with Dr Jonnathan Darby in [place] for routine care Will discharge home this afternoon Subjective 02/07 The patient was seen and examined in medical telemetry unit He is a status post EGD He denies any symptoms following the procedure and wants to go home He was noted to have a Arlin-Philip tear esophagus which is not bleeding anymore We will get clears today and likely home tomorrow 02/08 The patient was seen and examined in medical telemetry unit He denies any symptoms this morning He has been tolerating regular diet and ambulating well in the hallway Hemoglobin remains stable and he will be going home this afternoon Review of Systems Review of Systems: All systems reviewed and are unremarkable except as noted. Physical Exam Physical Exam: Lying in bed comfortably Constitutional: well developed, well nourished, well groomed, cooperative and comfortable; not obese Eyes: PERRL, conjunctivae normal, anicteric sclerae ENMT: external ear and nose normal, oropharynx normal Mouth: + small oral opening; no TMJ abnormality Mallampati Class: III Neck: normal visual inspection; neck extension not limited Respiratory: normal respiratory effort Auscultation: lungs clear to auscultation bilaterally Cardiovascular: Rate/Rhythm: regular rate and regular rhythm Heart Sounds: no murmur Gastrointestinal (Abdomen): Inspection/Auscultation: abdomen normal to inspection and normal bowel sounds Percussion/Palpation: abdomen soft; abdomen nontender Skin: no rashes, warm and dry no jaundice Neurologic: moves all extremities; no focal motor deficits Motor/Sensory: no asterixis Psychiatric: A+Ox3, euthymic affect Orientation: alert and oriented x 3 Lymphatic: no cervical or axillary lymphadenopathy no lymphedema Results & Data Vital Signs (Past 12 Hours) Vital Signs Temp Pulse Pulse Resp BP BP Pulse Ox 02/08/19 08:25 55 L 02/08/19 08:19 61 117/69 02/08/19 07:00 36.3 C L 54 L 20 116/66 97 02/08/19 04:27 36.7 C 62 18 115/73 99 02/08/19 00:30 59 L 02/07/19 23:13 36.8 C 68 18 123/69 96 Laboratory Results Short CBC 02/08/19 Range/Units 06:55 WBC 5.07 (4.8-10.8) K/uL Hgb 9.4 L (14.0-18.0) g/dL Hct 26.9 L (42-52) % Plt Count 154 (130-400) K/uL BMP 02/08/19 06:55 Sodium 140 Potassium 3.7 Chloride 108 H Carbon Dioxide 27 BUN 8 D Creatinine 0.99 Glucose 105 H Calcium 8.2 L Medications Administered Current Inpatient Medications Acetaminophen (Tylenol) 650 mg PO Q4H PRN PRN Reason: Pain or Fever Stop: 03/08/19 13:16 Amlodipine Besylate (Norvasc) 10 mg PO DAILY [facility] Stop: 03/09/19 08:59 Last Admin: 02/08/19 08:20 Dose: 10 mg Documented by: Pantoprazole Sodium 40 mg/ (Dextrose) 100 mls @ 20 mls/hr IV Q5H [facility] Stop: 03/08/19 10:29 Last Admin: 02/08/19 10:18 Dose: 20 mls/hr Documented by: Sodium Chloride (Nss) 250 mls @ 15 mls/hr IV .[id number] PRN PRN Reason: For Transfusion Stop: 03/08/19 13:16 Latanoprost (Xalatan Oph) 1 drops OP PM [facility] Stop: 03/08/19 20:59 Last Admin: 02/07/19 20:20 Dose: 1 drops Documented by: Ondansetron HCl (Zofran) 4 mg IV Q6H PRN PRN Reason: Nausea Stop: 03/08/19 13:16
[2019-02-08 11:06] VITALS: PULSE 52; TEMP 97.5
[2019-02-08 13:00] VITALS: BP 123/69
--- NOTE | 2019-02-08 18:01 | Discharge Summary ---
Date of Service February 08, 2019 Admission HPI Per Admitting Provider Pt is 78 y/o M with PMH HTN, gout, Schatzki ring presented to ER with c/o melena started yesterday. Patient with history Schatzki ring and on 01/22/2019 had upper endoscopy with dilation by Dr Matias with reported small tear at 15 mm and moderate mucosal disruption after 16 mm on 02/04/2019. Also with upper endoscopy with dilation with reported mild mucosal disruption. Pt reports after procedure he was able to swallow without difficulty and has been eating solid and liquid foods without any dysphagia. Reports had 2 BMs yesterday which were black in coloration and had red-colored tinge to toilet water. Patient states yesterday he felt dizzy and sweaty when having BM. Denies any syncope. This morning with formed BM also reported as dark black color stool. Denies any abdominal pain, nausea or vomiting. States feels tired. Patient states yesterday took aspirin 325 mg. Reports his been taking this medication for years at prior recommendation PCP. Patient reports this morning took 1 tablet of ibuprofen. Denies taking NSAIDs usually. Usually drinks 1 beer a day, last use 02/02/19. reports ate this morning. Pt reports hx colonscopy [place] [address] Child at [facility]. Denies fever/chills, CATES, dizziness, syncope, vision changes, neck pain, CP, SOB, orthopnea, palpitations, cough, sore throat, choking, otalgia, rhinorrhea, paresthesias, weakness, extremity weakness, extremity edema, rashes, urinary symptoms. Admission Exam Per Admitting Provider Physical Exam: General: no distress, WDWN Head: normocephalic, atraumatic Eyes: PERRL, EOM's intact, conjunctiva non-injected, anicteric ENT: normal inspection external ears, nose, mucous membranes moist Neck: supple, trachea midline, non-tender Lungs: clear, no respiratory distress, no wheezing/rhonchi/rales CV: RRR, no murmur, no pretibial edema Abd: normal BS, soft, non-tender Ext: no cyanosis, no calf tenderness Neuro: A&O x 3, no focal deficits noted, normal affect Skin: warm, dry Principal Diagnosis GI bleed secondary to Arlin-Philip tear Of Schatzki's ring, history of recent esophageal dilatation, hypertension Discharge Exam Constitutional well developed, well nourished, well groomed, cooperative and comfortable; not obese Eyes PERRL, conjunctivae normal, anicteric sclerae ENMT external ear and nose normal, oropharynx normal Mouth: + small oral opening; no TMJ abnormality Mallampati Class: III Neck normal visual inspection; neck extension not limited Respiratory normal respiratory effort Auscultation: lungs clear to auscultation bilaterally Cardiovascular Rate/Rhythm: regular rate and regular rhythm Heart Sounds: no murmur Gastrointestinal (Abdomen) Inspection/Auscultation: abdomen normal to inspection and normal bowel sounds Percussion/Palpation: abdomen soft; abdomen nontender Skin no rashes, warm and dry no jaundice Neurologic moves all extremities; no focal motor deficits Motor/Sensory: no asterixis Psychiatric A+Ox3, euthymic affect Orientation: alert and oriented x 3 Lymphatic no cervical or axillary lymphadenopathy no lymphedema Discharge Data Allergies Allergy/AdvReac Type Severity Reaction Status Date / Time No Known Allergies Allergy Unverified 02/06/19 10:33 Consultations 02/06/19 11:20 ED Decision to Admit Stat 02/06/19 13:17 Consult Gastroenterology Routine Procedures Performed Operation Date: 02/07/19 08:30 Actual Procedures p EGD Hemostasis - [facility] Course (1) Melena: Secondary to bleeding from Arlin-Philip tear Status post EGD-no evidence of active bleeding Denies any symptoms No more black stool (2) Status post dilation of esophageal narrowing: Pt is 78 y/o M with PMH HTN, gout, Schatzki ring presented with c/o melena started yesterday. Reported 2 black color formed stools yesterday with red color toilet water and 1 formed black color stool today. Yesterday reported dizziness, diaphoresis. Hx Schatzki ring, H/O upper endoscopy with dilation on 01/22/2019 Dr Matias with reported small tear at 15 mm and moderate mucosal disruption after 16 mm on 02/04/2019. 02/04/19 upper endoscopy with dilation with reported mild mucosal disruption. As above Clears have been started and will advance as tolerated PPI twice daily for 4 weeks Likely discharge tomorrow Has been tolerating regular diet and has been ambulating in the hallway Will be discharged this afternoon (3) Bradycardia: Initial pulse recorded 37 at ER triage. During ER course pulse in 60's. Pt without any current dizziness, CP, SOB. Is alert and oriented -Monitor on tele -no bradycardia noted (4) HTN (hypertension): -Continue amlodipine with holding parameters -Blood pressure is controlled (5) Gout: Pt denies recent flares Previously prescribed allopurinol, however reports has not been using for while DVT Prophylaxis -SCDs Full Code as per discussion with pt Follows with Dr Jonnathan Darby in [place] for routine care Will discharge home this afternoon Total Time Total Time Spent Total Time Spent (In Minutes): 35 minutes Total Time Includes: Examination of the Patient, Discharge Planning, Medication Reconciliation and Communication With Other Providers Discharge Plan Discharge Items Patient Disposition: Home - Self-Care Reason For Visit: MELENA Discharge Diagnosis: GI bleed secondary to Arlin-Philip tear Of Schatzki's ring, history of recent esophageal dilatation, hypertension Condition on Discharge: Good Activity: Resume your previous activity Non-emergency contact: Primary Care Provider Call non-emergency contact if: you have any medication questions and your symptoms worsen Follow-up/Referrals: Jonnathan Darby [Primary Care Provider] - (Please make an appointment with your primary care physician within 1 week) Diet: Regular Addtl Attending Provider Instructions: Avoid any NSAID use Pending Studies at Discharge: No Stand-Alone Forms: My [facility] [employer] Medications and DC Order Prescriptions: New pantoprazole [Protonix] 40 mg tablet,delayed release (DR/EC) 40 mg PO BID 30 Days Qty: 60 RF: 0 Continued latanoprost 0.005 % Drops 1 drp OPHTHALMIC (EYE) PM RF: 0 cyanocobalamin (vitamin B-12) [Vitamin B-12] 1,000 mcg Tablet PO DAILY RF: 0 allopurinol 100 mg Tablet 100 mg PO DAILY RF: 0 amlodipine 10 mg Tablet 10 mg PO DAILY RF: 0 coenzyme Q10 [Co Q-10] 100 mg Capsule PO DAILY RF: 0 Discontinued aspirin, buffered 325 mg Tablet 325 mg PO DAILY RF: 0 Discharge Orders: Discharge Order (Routine); Ordered 02/08/19 Ordered By: Trisha Mayes Admission Data Admit Date/Time: 02/06/19 11:57 Attending Provider: Trisha Mayes Admit Provider: Hira Cespedes Primary Care Provider: Wilner,Jonnathan A. Other Providers: Gomez Freiregala,Hira K. ; Braxton Juarez Other Interventions: Discharge Summary Assessment (RN) Last Done: 02/08/19 12:59 DC Date/Time DO NOT enter until pt leaves facility: 02/08/19 13:47
== END 2019-02-08 13:47 | disposition home or self-care (01) ==
LOC: ED 10:02 → 2N 10:02 → SUATTDRO 11:57 → 2N 12:59
DX: K29.70 Gastritis, unspecified, without bleeding; I10 Essential (primary) hypertension; Z98.890 Other specified postprocedural states; D64.9 Anemia, unspecified; K22.2 Esophageal obstruction; K22.6 Gastro-esophageal laceration-hemorrhage syndrome; M10.9 Gout, unspecified

== ENCOUNTER 2022-10-30 20:59 | Observation (INO) ==
[2022-10-30 21:25] LABS: Basophils # (auto) 0.04 K/uL (0-0.2); Basophils % (auto) 0.5 %; Eosinophils # (auto) 0.45 K/uL (0-0.50); Eosinophils % (auto) 5.2 %; Hematocrit (blood only) 40.9 % (42.0-52.0); Hemoglobin 14.8 g/dl (14.0-18.0); Immature Granulocytes # (auto) 0.01 K/uL (0.01-0.20); Immature Granulocytes % (auto) 0.1 %; Lymphocytes # (auto) 1.56 K/uL (1.2-3.4); Lymphocytes % (auto) 18.1 %; Mean Corpuscular Hemoglobin 30.7 pg (25.0-34.0); Mean Corpuscular Hgb Conc 36.2 g/dL (32.0-36.0); Mean Corpuscular Volume 84.9 fL (80.0-100.0); Mean Platelet Volume 10.3 fL (9.4-12.4); Monocytes # (auto) 1.06 K/uL (0.11-0.59); Monocytes % (auto) 12.3 %; Neutrophils # (auto) 5.49 K/uL (1.40-6.50); Neutrophils % (auto) 63.8 %; Platelet Count 223 K/uL (130-400); RDW Coefficient of Variation 13.5 % (11.5-14.5); RDW Standard Deviation 41.9 fL (36.4-46.3); Red Blood Count 4.82 M/uL (4.70-6.10); White Blood Count 8.61 K/ul (4.8-10.8)
[2022-10-30 21:42] LABS: Albumin Globulin Ratio 1.3 (0.9-2); BUN Creatinine Ratio 30.2 (10-20); Bilirubin,Total 0.4 mg/dl (0.2-1.0); Calcium 9.3 mg/dl (8.6-10.3); Creatinine Clr Calc Pharmacy 41.8 ml/min; Est GFR (African American) 67.1 ml/min; Est GFR (Non-African American) 57.9 ml/min; Globulin 3.1 gm/dl (2.5-4.0); Total Protein 7.1 gm/dl (6.0-8.3)
[2022-10-30] MEDS ORDERED: SODIUM CHLORIDE 0.9% 1000ML 500 ML IV ONE (21:51)
[2022-10-30] MEDS ORDERED: ACETAMINOPHEN 1,000 MG/100 ML VIAL IV STA (21:51)
[2022-10-30] MEDS ORDERED: ONDANSETRON INJ 2 MG/ML 2 ML VIAL IV STA (21:51)
[2022-10-30] MEDS ORDERED: FAMOTIDINE 20MG IV PUSH 20 MG/5 ML SYR IV STA (21:51)
--- NOTE | 2022-10-30 22:15 | Emergency Department Note ---
History of Present Illness General Chief complaint: Abdominal Pain Stated complaint: ABDOMINAL PAIN Time Seen by Provider: 10/30/22 21:40 History of Present Illness Maximum Pain Intensity: 10 This 82-year-old gentleman presents to the ER for abdominal pain with vomiting and diarrhea. Patient states that vomiting and the diarrhea has tapered off but now he has right mid abdominal pain. Gallbladder has been surgically removed. No black or blood in the vomit or stool. Patient denies chest pain, dyspnea, fevers, flulike illness. Home Medications Medication Instructions Recorded Confirmed Type Lactobacillus 1 cap PO DAILY 10/31/22 10/31/22 History 41-B.animalis,bifid-FOS 111 mg (25 billion cell) capsule (Ultimate Probiotic-10) ascorbic acid (vitamin C) 1,000 mg 1,000 mg PO DAILY 10/31/22 10/31/22 History capsule aspirin 81 mg tablet,delayed 81 mg PO DAILY 10/31/22 10/31/22 History release biotin 10,000 mcg capsule 10,000 mcg PO DAILY 10/31/22 10/31/22 History choline [id number] 1 tab PO DAILY 10/31/22 10/31/22 History tablet docosahexaenoic injo-fpl-uvz E 1 cap PO BID 10/31/22 10/31/22 History capsule ibuprofen 200 mg tablet 200 mg PO Q6H PRN Pain 10/31/22 10/31/22 History multivitamin with minerals 1 tab PO DAILY 10/31/22 10/31/22 History omeprazole 20 mg tablet,delayed 20 mg PO DAILY 10/31/22 10/31/22 History release phytosterol 500 mg capsule 0 mg PO BID 10/31/22 10/31/22 History psyllium 3.4 gram/5.8 gram oral 3.4 g PO BID 10/31/22 10/31/22 History powder vit Y-jljjzrzm-[id number] palmetto 160 1 cap PO DAILY 10/31/22 10/31/22 History mg-Pygeum africanum 12.5 mg capsule (Urinozinc Prostate Classic) Allergies Allergy/AdvReac Type Severity Reaction Status Date / Time No Known Allergies Allergy Unverified 10/31/22 00:52 Past Med/Surg History Medical History (Updated 10/31/22 @ 00:09 by Karin Darby PA-C) Gout HTN (hypertension) Schatzki's ring Surgical History History of cholecystectomy History of esophagogastroduodenoscopy (EGD) 01/22/19, 02/04/[address] Matias History of lumbar surgery Family History Mother Stroke Social History Smoking Status: Former smoker Cigarettes Per Day: 1 PACK A DAY.; Second Hand Exposure: No; Do You Dip or Chew Tobacco: No; Tobacco Cessation Education Requested by Patient: No Hx Alcohol Use: Yes Alcohol type: beer Hx Substance Use: No Preferred Language: Haitian Communication Ability: Effective Senior Network Engineer Required: No Beliefs That Will Affect Care: None Current Living Situation: Spouse Other Information That Helps Us Care for You: No Feels Safe at Home: Yes Safety Concerns: Feels Safe At This Time Assistive Devices: None Review of Systems A total of 10 systems reviewed and were otherwise negative Physical Exam Vital Signs Vital Signs - 24 hr 10/30/22 21:06 10/30/22 21:40 10/30/22 23:30 Temperature 36.9 C Temperature Source Temporal Artery Scan Pulse Rate 67 Pulse Rate [Left Brachial] 62 94 H Pulse Rhythm [Left Brachial] Regular Pulse Strength [Left Brachial] Normal Respiratory Rate 18 18 18 Respiratory Effort / Characteristics Non-Labored Spontaneous Non-Labored Spontaneous Respiratory Depth Normal Normal Respiratory Pattern Regular Regular Blood Pressure 182/94 H Blood Pressure [Left Arm] 159/87 H 172/117 H Blood Pressure Mean 123 Blood Pressure Mean [Left Arm] 111 135 Blood Pressure Position [Left Arm] Lying Pulse Oximetry 95 99 97 Oxygen Delivery Method Room Air Room Air Room Air Sepsis Recent Fever Within 48 Hours No Sepsis New/Unexplained Change in Mental Status No Sepsis Action Taken by Nursing No Action Required 10/31/22 01:19 Temperature Temperature Source Pulse Rate Pulse Rate [Left Brachial] 102 H Pulse Rhythm [Left Brachial] Pulse Strength [Left Brachial] Respiratory Rate 16 Respiratory Effort / Characteristics Respiratory Depth Respiratory Pattern Blood Pressure Blood Pressure [Left Arm] 188/94 H Blood Pressure Mean Blood Pressure Mean [Left Arm] 125 Blood Pressure Position [Left Arm] Pulse Oximetry 95 Oxygen Delivery Method Room Air Sepsis Recent Fever Within 48 Hours Sepsis New/Unexplained Change in Mental Status Sepsis Action Taken by Nursing VITALS: Vitals are noted on the nurse's note and reviewed by myself. Vital signs stable. GENERAL: Pleasant gentleman with present, in no acute distress, nondiaphoretic, well-developed well-nourished. SKIN: The skin was without rashes, erythema, edema, or bruising. There is no tenting of the skin. Capillary reflex less than 2 seconds. HEAD: Normocephalic atraumatic. EARS: External auditory canals clear, EYES: Pupils equal round and reactive to light and accommodation. Conjunctivae without injection, sclerae without icterus. Extraocular movements intact. NOSE: Patent, turbinates without inflammation or discharge. MOUTH: Mucous membranes mildly dry. Pharynx without erythema or exudate. Uvula midline. Airway patent. Tongue does not deviate. NECK: Supple without nuchal rigidity. No lymphadenopathy. No thyromegaly. Cervical spine is nontender. No JVD. HEART: Regular rate and rhythm LUNGS: Clear to auscultation bilaterally without wheezes, rales or rhonchi. No retractions or accessory muscle use. ABDOMEN: Positive bowel sounds x 4. Normal tympanic percussion. Soft, tender mid lower abdomen, without masses or organomegaly. Gonsalez sign negative. No guarding or rebound tenderness. No CVA tenderness MUSCULOSKELETAL: No muscle atrophy, erythema, or edema noted. NEURO: Patient was alert and oriented to person place and time. Normal sensation to light and sharp touch. No focal neurological deficits. Course Administered Medications Acetaminophen (Acetaminophen 325 Mg Tab) 650 mg PO Q4H PRN PRN Reason: pain/fever Stop: 11/30/22 04:01 Last Admin: 10/31/22 06:23 Dose: 650 mg Documented By: RES Enoxaparin Sodium (Enoxaparin Inj 40 Mg/0.4 Ml Syr) 40 mg SQ Q24H [facility] Stop: 11/30/22 05:59 Last Admin: 10/31/22 06:24 Dose: 40 mg Documented By: RES Hydralazine HCl (Hydralazine Hcl 25 Mg Tab) 25 mg PO BID [facility] Stop: 11/30/22 16:29 Last Admin: 10/31/22 17:09 Dose: 25 mg Documented By: CS Sodium Chloride (Nss 1000ml) 1,000 mls @ 80 mls/hr IV .[id number] SYED Stop: 11/01/22 05:01 Last Admin: 10/31/22 17:01 Dose: 80 mls/hr Documented By: Infusion: 10/31/22 16:32 Dose: 80 mls/hr Documented By: Admin: 10/31/22 04:02 Dose: 80 mls/hr Documented By: ANTHONY Morphine Sulfate (Morphine Sulfate 4 Mg/Ml 1 Ml Carp\Vial) 3 mg IV Q4H PRN PRN Reason: Pain Stop: 11/14/22 04:01 Last Admin: 10/31/22 10:59 Dose: 3 mg Documented By: Admin: 10/31/22 04:24 Dose: 3 mg Documented By: ANTHONY Discontinued Medications Hydralazine HCl (Hydralazine Hcl 20 Mg/Ml Vial) 5 mg IV NOW ONE Stop: 10/31/22 04:04 Last Admin: 10/31/22 04:24 Dose: 5 mg Documented By: ANTHONY Hydralazine HCl (Hydralazine Hcl 25 Mg Tab) 25 mg PO NOW STA Stop: 10/31/22 08:29 Last Admin: 10/31/22 11:35 Dose: Not Given Documented By: RIGO Sodium Chloride (Nss 1000ml) 500 mls @ 999 mls/hr IV .Q31M ONE Stop: 10/30/22 22:21 Last Infusion: 10/30/22 23:22 Dose: 0 mls/hr Documented By: Admin: 10/30/22 22:07 Dose: 999 mls/hr Documented By: JOSE CARLOS Famotidine (Pepcid 20mg Iv Push) 20 mg in 5 mls @ 2.5 mls/min IV NOW STA Stop: 10/30/22 21:52 Last Admin: 10/30/22 22:34 Dose: 2.5 mls/min Documented By: JOSE CARLOS Acetaminophen (Ofirmev) 1,000 mg in 100 mls @ 400 mls/hr IV NOW STA Stop: 10/30/22 22:05 Last Infusion: 10/30/22 22:35 Dose: 0 mls/hr Documented By: JOSE CALROS Admin: 10/30/22 22:11 Dose: 400 mls/hr Documented By: JOSE CARLOS Sodium Chloride (Nss 1000ml) 500 mls @ 999 mls/hr IV .Q31M ONE Stop: 10/31/22 00:39 Last Infusion: 10/31/22 01:05 Dose: 0 mls/hr Documented By: Admin: 10/31/22 00:16 Dose: 999 mls/hr Documented By: JOSÉ Ioversol (Optiray 320 100ml) 88 ml IV ONCE ONE Stop: 10/30/22 22:21 Last Admin: 10/30/22 22:20 Dose: 88 ml Documented By: FELIPE Ketorolac Tromethamine (Ketorolac Tromethamine 15 Mg/Ml Vial) 10 mg IV NOW STA Stop: 10/31/22 00:10 Last Admin: 10/31/22 00:12 Dose: 10 mg Documented By: JOSÉ Morphine Sulfate (Morphine Sulfate 4 Mg/Ml 1 Ml Carp\Vial) 4 mg IV NOW STA Stop: 10/30/22 23:22 Last Admin: 10/30/22 23:26 Dose: 4 mg Documented By: AN Ondansetron HCl (Ondansetron Inj 2 Mg/Ml 2 Ml Vial) 4 mg IV NOW STA Stop: 10/30/22 21:52 Last Admin: 10/30/22 22:09 Dose: 4 mg Documented By: JOSE CARLOS Medical Decision Making Medical Records Attestation: I reviewed the patient's medical records. Home Medications Current Medication List: was personally reviewed by me Laboratory Data Attestation: I reviewed the patient's lab results. 10/30/22 21:13 10/30/22 21:13 Lab Results 10/30/22 10/30/22 10/30/22 Range/Units 21:13 21:13 22:30 WBC 8.61 (4.8-10.8) K/ul RBC 4.82 (4.70-6.10) M/uL Hgb 14.8 (14.0-18.0) g/dl Hct 40.9 L (42.0-52.0) % MCV 84.9 (80.0-100.0) fL MCH 30.7 (25.0-34.0) pg MCHC 36.2 H (32.0-36.0) g/dL RDW Std Deviation 41.9 (36.4-46.3) fL RDW Coeff of Izabel 13.5 (11.5-14.5) % Plt Count 223 (130-400) K/uL MPV 10.3 (9.4-12.4) fL Immature Gran % (Auto) 0.1 % Neut % (Auto) 63.8 % Lymph % (Auto) 18.1 % Edgar % (Auto) 12.3 % Eos % (Auto) 5.2 % Baso % (Auto) 0.5 % Neut # (Auto) 5.49 (1.40-6.50) K/uL Lymph # (Auto) 1.56 (1.2-3.4) K/uL Edgar # (Auto) 1.06 H (0.11-0.59) K/uL Eos # (Auto) 0.45 (0-0.50) K/uL Baso # (Auto) 0.04 (0-0.2) K/uL Immature Gran # (Auto) 0.01 (0.01-0.20) K/uL Sodium 134 L (136-145) mmol/L Potassium 4.0 (3.5-5.1) mmol/L Chloride 102 (98-107) mmol/L Carbon Dioxide 24 (21-32) mmol/L Anion Gap 8 (3-11) BUN 35 H (6-23) mg/dl Creatinine 1.16 (0.6-1.4) mg/dl Est Cr Clr Drug Dosing 41.8 ml/min Est GFR ( Amer) 67.1 ml/min Est GFR (Non-Af Amer) 57.9 ml/min BUN/Creatinine Ratio 30.2 H (10-20) Glucose 135 H (70-99(Fasting)) mg/dl Lactate 1.9 (0.4-2.0) mmol/L Calcium 9.3 (8.6-10.3) mg/dl Magnesium 1.9 (1.7-2.4) mg/dl Total Bilirubin 0.4 (0.2-1.0) mg/dl AST 46 H (13-39) U/L ALT 38 (7-52) U/L Alkaline Phosphatase 48 (34-104) U/L Troponin I High Sens 11.8 (0-20) pg/ml Total Protein 7.1 (6.0-8.3) gm/dl Albumin 4.0 (3.4-5.0) gm/dl Globulin 3.1 (2.5-4.0) gm/dl Albumin/Globulin Ratio 1.3 (0.9-2) Lipase 45 (11-82) U/L Urine Color Urine Appearance (Clear) Urine pH (4.5-7.5) Ur Specific [place] (1.000-1.030) Urine Protein (Negative) Urine Glucose (UA) (Negative) Urine Ketones (Negative) Urine Blood (Negative) Urine Nitrite (Negative) Urine Bilirubin (Negative) Urine Urobilinogen (Negative) Ur Leukocyte Esterase (Negative) Urine WBC (Auto) (0-5) /hpf Urine RBC (Auto) (0-4) /hpf U Hyaline Cast (Auto) (0-5) /lpf U Epithel Cells (Auto) (0-5) /lpf Urine Bacteria (Auto) (Negative) SARS-CoV-2 (PCR) (Negative) Influenza Type A (PCR) (Neg) Influenza Type B (PCR) (Neg) RSV (RT-PCR) (Neg) 10/30/22 10/30/22 Range/Units 22:30 23:30 WBC (4.8-10.8) K/ul RBC (4.70-6.10) M/uL Hgb (14.0-18.0) g/dl Hct (42.0-52.0) % MCV (80.0-100.0) fL MCH (25.0-34.0) pg MCHC (32.0-36.0) g/dL RDW Std Deviation (36.4-46.3) fL RDW Coeff of Izabel (11.5-14.5) % Plt Count (130-400) K/uL MPV (9.4-12.4) fL Immature Gran % (Auto) % Neut % (Auto) % Lymph % (Auto) % Edgar % (Auto) % Eos % (Auto) % Baso % (Auto) % Neut # (Auto) (1.40-6.50) K/uL Lymph # (Auto) (1.2-3.4) K/uL Edgar # (Auto) (0.11-0.59) K/uL Eos # (Auto) (0-0.50) K/uL Baso # (Auto) (0-0.2) K/uL Immature Gran # (Auto) (0.01-0.20) K/uL Sodium (136-145) mmol/L Potassium (3.5-5.1) mmol/L Chloride (98-107) mmol/L Carbon Dioxide (21-32) mmol/L Anion Gap (3-11) BUN (6-23) mg/dl Creatinine (0.6-1.4) mg/dl Est Cr Clr Drug Dosing ml/min Est GFR ( Amer) ml/min Est GFR (Non-Af Amer) ml/min BUN/Creatinine Ratio (10-20) Glucose (70-99(Fasting)) mg/dl Lactate (0.4-2.0) mmol/L Calcium (8.6-10.3) mg/dl Magnesium (1.7-2.4) mg/dl Total Bilirubin (0.2-1.0) mg/dl AST (13-39) U/L ALT (7-52) U/L Alkaline Phosphatase (34-104) U/L Troponin I High Sens (0-20) pg/ml Total Protein (6.0-8.3) gm/dl Albumin (3.4-5.0) gm/dl Globulin (2.5-4.0) gm/dl Albumin/Globulin Ratio (0.9-2) Lipase (11-82) U/L Urine Color Dark Yellow Urine Appearance Clear (Clear) Urine pH 5.0 (4.5-7.5) Ur Specific [place] > 1.045 H (1.000-1.030) Urine Protein Negative (Negative) Urine Glucose (UA) Negative (Negative) Urine Ketones Negative (Negative) Urine Blood Negative (Negative) Urine Nitrite Negative (Negative) Urine Bilirubin Negative (Negative) Urine Urobilinogen Negative (Negative) Ur Leukocyte Esterase Trace H (Negative) Urine WBC (Auto) 5-10 H (0-5) /hpf Urine RBC (Auto) 0-4 (0-4) /hpf U Hyaline Cast (Auto) 1-5 (0-5) /lpf U Epithel Cells (Auto) 5-10 H (0-5) /lpf Urine Bacteria (Auto) Negative (Negative) SARS-CoV-2 (PCR) NEGATIVE (Negative) Influenza Type A (PCR) Negative (Neg) Influenza Type B (PCR) Negative (Neg) RSV (RT-PCR) Negative (Neg) Imaging Data Attestation: I personally reviewed and interpreted this imaging study as follows: Radiologist's Impression: Abdomen/Pelvis CT 10/30/22 21:51 Exam(s): CT ABDOMEN + PELVIS With Contrast IV Amt: 88ML OPTIRAY 320 EXAM: CT Abdomen and Pelvis With Intravenous Contrast CLINICAL HISTORY: Reason for exam: mid abd pain. TECHNIQUE: Axial computed tomography images of the abdomen and pelvis with intravenous contrast. Automated exposure control was utilized for the study. A dose lowering technique was utilized adhering to the principles of ALARA. CONTRAST: Patient received 88ML OPTIRAY 320 of IV contrast COMPARISON: No relevant prior studies available. FINDINGS: Lung bases: Unremarkable. No mass. No consolidation. ABDOMEN: Liver: Atrophic left lobe of the liver. Right lobe the liver is unremarkable. Gallbladder and bile ducts: Gallbladder has been removed. No ductal dilation. Pancreas: Unremarkable. No mass. No ductal dilation. Spleen: Unremarkable. No splenomegaly. Adrenals: Unremarkable. No mass. Kidneys and ureters: Unremarkable. No solid mass. No hydronephrosis. Stomach and bowel: Unremarkable. No obstruction. No mucosal thickening. Soft tissue density at the ileocecal valve and cecum is favored to be mixture between stool and small bowel contents rather than a mass as there is prominent stool in the remainder of the colon making an obstructing mass at this location unlikely. PELVIS: Appendix: No findings to suggest acute appendicitis. Bladder: Unremarkable. No mass. Reproductive: Unremarkable as visualized. ABDOMEN and PELVIS: Intraperitoneal space: Unremarkable. No free air. No significant fluid collection. Bones/joints: No acute fracture. No dislocation. Soft tissues: Unremarkable. 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 No abdominal aortic aneurysm. Lymph nodes: Unremarkable. No enlarged lymph nodes. IMPRESSION: No evidence of acute abdominal or pelvic process. 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 Electronically signed by: Valentino Ding M.D. 10/30/22 23:27 PM [facility] Narrative Prior records/ancillary studies reviewed. Triage Nursing notes reviewed. Additional history obtained from the family. The patient's history was concerning for nausea, vomiting, diarrhea, and abdominal pain. Differential diagnosis: Etiologies such as gastroenteritis, food borne illness, infections, appendicitis, diverticulitis, inflammatory bowel disease, obstruction, GI bleed, biliary pathology, as well as others were entertained. Physical examination findings: As above. Abdominal examination revealed tenderness. Vital signs reviewed and revealed stable. ER treatment provided: IV hydration, Pepcid, Zofran, Tylenol On reassessment the patient felt better. Patient was tolerating p.o. intake. Diagnostics interpretation by me: EKG ordered for abdominal pain EKG: Normal sinus, normal intervals, no acute ST-T wave changes. Impression sinus bradycardia 58 independently interpreted by myself I think arrhythmia is unlikely. EKG shows normal sinus rhythm with no interval abnormalities such as QT prolongation or WPW. There are no findings to suggest Brugada syndrome. Cardiac monitoring in the emergency department reveals no tachycardic or bradycardic dysrhythmia. Hypertrophic cardiomyopathy was considered but there are no clear historical elements pointing toward this. EKG is not suggestive. The QRS voltage is not extremely large and there are no suggestive Q waves. The labs Independently Interpreted by myself revealed no worrisome leukocytosis, stable H&H Imaging studies: Abdomen pelvis CT was read by stat radiology and independently interpreted and reviewed by myself with no acute findings noted. Consultation: A consultation was placed with the hospitalist. The case was discussed and diagnostics were reviewed. The patient was evaluated in the ER for further treatment. This appears to be consistent with acute abdominal pain with vomiting and diarrhea.. Patient still in severe amount of pain. He was given multiple rounds of pain meds. Medicine was consulted and case discussed. He will be admitted to the medical service. Labs and diagnostics were independent interpreted by myself. Radiology for the CAT scan. By the evaluation outlined above emergent etiologies such as appendicitis, diverticulitis, obstruction, cardiac sources, mesenteric ischemia, aortic pathology, inflammatory bowel disease, renal colic, PUD, biliary pathology, UTI, as well as others were deemed relatively unlikely. The pt informed about the findings as listed above. All questions were answered and pleased with the treatment. The chart was completed utilizing [employer] Speech voice recognition software. Grammatical errors, random word insertions, pronoun errors, and incomplete sentences are an occassional consequence of this system due to software limitations, ambient noise, and hardware issues. Any formal questions or concerns about the content, text, or information contained within the body of this dictation should be directly addressed to the physician family services assistant for clarification. Impression & Plan Abdominal pain, acute, Nausea vomiting and diarrhea Discharge Plan Visit Data Chief Complaint: Abdominal Pain Stated Complaint: ABDOMINAL PAIN ED Provider: Fred Simmons ED Midlevel Provider: Karin Darby Discharge Problem: Abdominal pain, acute, Nausea vomiting and diarrhea Patient Disposition: Being Evaluated by Hospitalist Condition: Fair Discharge Instructions Interventions: ED Discharge Assessment Last Done: 10/31/22 03:07 Addendum October 31, 2022 18:52 HPI: The patient is a 82-year-old gentleman with a past medical history of hypertension and gout who presents emergency department for nausea, vomiting and diarrhea. A/P: EKG demonstrates sinus bradycardia without high-grade block or overt acute ischemia. WBC, hemoglobin and platelets within normal limits. Chemistry without metabolic acidosis. BUN/creatinine> 30 consistent with dehydration. AST 46, marginally above normal and nonspecific. High-sensitivity troponin 11.8, within normal limits. Lipase is not elevated. UA without convincing evidence of infection. COVID-19, influenza and RSV PCR's were negative. CT of the abdomen pelvis was negative for acute intra-abdominal process. Incidental note is made of left femoral artery calcification with 80% stenosis. The patient was treated with IV fluid hydration, Pepcid, Zofran and referred to the hospital service due to persistence of symptoms of gastroenteritis. I was consulted by the Advanced Practice Provider.I performed a substantive portion of the visit.This includes aspects of the HPI, MDM, diagnostic interpr etations, and disposition/plan. I discussed the case with the BIGG, examined the patient, and agree with the findings and plan as documented in BIGG Wilner's note.
[2022-10-30] MEDS ORDERED: OPTIRAY 320 100ml IV ONE (22:20)
[2022-10-30 22:38] LABS: Magnesium 1.9 mg/dl (1.7-2.4)
[2022-10-30 22:47] LABS: Troponin I High Sensitivity 11.8 pg/ml (0-20)
[2022-10-30] MEDS ORDERED: MoRPHine SULFATE 4 MG/ML 1 ML CARP\\VIAL IV STA (23:21)
--- NOTE | 2022-10-30 23:27 | CT Scan Report ---
Exam(s): CT ABDOMEN + PELVIS With Contrast IV Amt: 88ML OPTIRAY 320 EXAM: CT Abdomen and Pelvis With Intravenous Contrast CLINICAL HISTORY: Reason for exam: mid abd pain. TECHNIQUE: Axial computed tomography images of the abdomen and pelvis with intravenous contrast. Automated exposure control was utilized for the study. A dose lowering technique was utilized adhering to the principles of ALARA. CONTRAST: Patient received 88ML OPTIRAY 320 of IV contrast COMPARISON: No relevant prior studies available. FINDINGS: Lung bases: Unremarkable. No mass. No consolidation. ABDOMEN: Liver: Atrophic left lobe of the liver. Right lobe the liver is unremarkable. Gallbladder and bile ducts: Gallbladder has been removed. No ductal dilation. Pancreas: Unremarkable. No mass. No ductal dilation. Spleen: Unremarkable. No splenomegaly. Adrenals: Unremarkable. No mass. Kidneys and ureters: Unremarkable. No solid mass. No hydronephrosis. Stomach and bowel: Unremarkable. No obstruction. No mucosal thickening. Soft tissue density at the ileocecal valve and cecum is favored to be mixture between stool and small bowel contents rather than a mass as there is prominent stool in the remainder of the colon making an obstructing mass at this location unlikely. PELVIS: Appendix: No findings to suggest acute appendicitis. Bladder: Unremarkable. No mass. Reproductive: Unremarkable as visualized. ABDOMEN and PELVIS: Intraperitoneal space: Unremarkable. No free air. No significant fluid collection. Bones/joints: No acute fracture. No dislocation. Soft tissues: Unremarkable. 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 No abdominal aortic aneurysm. Lymph nodes: Unremarkable. No enlarged lymph nodes. IMPRESSION: No evidence of acute abdominal or pelvic process. 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 Electronically signed by: Valentino Ding M.D. 10/30/22 23:27 PM
[2022-10-30 23:28] LABS: Influenza A virus by PCR Negative (Neg); Influenza B virus by PCR Negative (Neg); RSV by PCR Negative (Neg); SARS CoV2 RNA(COVID-19) Ceph NEGATIVE (Negative)
[2022-10-30 23:51] LABS: Appearance Urine Clear (Clear); Bacteria Urine Automated Negative (Negative); Bilirubin Urine Negative (Negative); Blood Urine Negative (Negative); Color Urine Dark Yellow; Glucose Urine UA Negative (Negative); Ketones Urine Negative (Negative); Leukocyte Esterase Urine Trace (Negative); Nitrite Urine Negative (Negative); Protein Urine Negative (Negative); RBC Urine Automated 0-4 /hpf (0-4); Specific Gravity Urine > 1.045 (1.000-1.030); Urobilinogen Urine Negative (Negative)
[2022-10-31] MEDS ORDERED: KETOROLAC TROMETHAMINE 15 MG/ML VIAL IV STA (00:09)
[2022-10-31] MEDS ORDERED: SODIUM CHLORIDE 0.9% 1000ML 500 ML IV ONE (00:09)
[2022-10-31] MEDS: SODIUM CHLORIDE 0.9% 1000ML 1,000 ML IV SCH ×2 (04:02→17:01)
[2022-10-31] MEDS ORDERED: ONDANSETRON INJ 2 MG/ML 2 ML VIAL IV PRN (04:02)
[2022-10-31] MEDS ORDERED: ACETAMINOPHEN 325 MG TAB PO PRN (04:02)
[2022-10-31] MEDS ORDERED: hydrALAZINE HCL 20 MG/ML VIAL IV ONE (04:03)
[2022-10-31] MEDS: MoRPHine SULFATE 4 MG/ML 1 ML CARP\\VIAL IV PRN ×2 (04:24→10:59)
[2022-10-31] MEDS: ENOXAPARIN INJ 40 MG/0.4 ML SYR SQ SCH (06:24)
--- NOTE | 2022-10-31 07:48 | History and Physical Report ---
DATE OF ADMISSION: 10/31/2022 CHIEF COMPLAINT: Nausea, vomiting, abdominal pain, diarrhea. HISTORY OF PRESENT ILLNESS: This is an 82-year-old male with past medical history significant for Schatzki ring gout, hypertension, presents with nausea, vomiting, and abdominal pain. The patient says nausea and vomiting started in the morning and he also developed some diarrhea. He took Imodium and that resolved the diarrhea, but he still has a lot of right lower quadrant abdominal pain, which prompted him to come to the ER. In the ER, after pain medications and antiemetics , he is feeling much better. He thinks he can eat food in the morning, resting comfortably and hemodynamically stable. Denies any chest pain, no shortness of breath, no cough, no fevers, no headache, no blurred visions, no earache, no runny nose, no sore throat. Normal bowel and bladder movements. No leg/calf pain on ambulation. ALLERGIES: No known drug allergies. PAST MEDICAL HISTORY: As mentioned above. PAST SURGICAL HISTORY: History of lumbar surgery, history of cholecystectomy, history of EGD. FAMILY HISTORY: Significant for mother had stroke. SOCIAL HISTORY: Former smoker, quit in , alcohol occasional . No substance abuse. MEDICATIONS: The patient is on aspirin 81 mg p.o. daily, multivitamins 1 tablet p.o. daily. REVIEW OF SYSTEMS: As per HPI. Rest of review of systems is negative. PHYSICAL EXAMINATION: GENERAL: The patient is of moderate build, not in acute distress. VITAL SIGNS: Temperature 36.9, pulse 102, respiratory rate 16, blood pressure 188/94, oxygen 95% on room air. HEENT: Pupils equal, round and reactive to light. Oral mucosa moist. NECK: No JVD. No neck masses. CARDIOVASCULAR: S1 and S2 heard. Regular rate and rhythm. No murmur, no gallop. RESPIRATORY SYSTEM: Normal AP diameter. No accessory muscle use. No wheezing or crackles. ABDOMEN: Soft, bowel sounds present. Mild right lower quadrant tenderness. No guarding. No rigidity, no distention. CENTRAL NERVOUS SYSTEM: Cranial nerves II-XII grossly intact, nonfocal. EXTREMITIES: No edema, no erythema. LABORATORY DATA: WBC 8.6, hemoglobin 14.8, hematocrit 40.9, platelets 223. Sodium 134, potassium 4, chloride 102, bicarbonate 24, BUN 35, creatinine 1.1, serum glucose 135, lactate 1.9, calcium 9.3, magnesium 1.9, total bilirubin 0.4, AST 46, ALT 38, alkaline phosphatase 40. Troponin I high sensitivity 11.8. Urinalysis, trace leukocyte esterase. SARS-CoV-2 rapid test negative. Influenza A and B PCR negative. RSV PCR negative. IMAGING DATA: CT of abdomen and pelvis with IV contrast shows no evidence of acute abdominopelvic process. Densely calcified left common femoral artery causing approximately 80% stenosis. EKG: Sinus bradycardia at rate of 58, no acute ST changes seen. ASSESSMENT AND PLAN: This is an 82-year-old male who presents with nausea, vomiting, abdominal pain, diarrhea. 1. Nausea, vomiting, abdominal pain, diarrhea, most likely gastroenteritis. Seems to be improving. We will keep him on full liquid diet, gentle IV fluids, pain control, monitor in the hospital. Advance diet as tolerated. 2. 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 Seems asymptomatic. Will get Doppler and follow results.On aspirin. 3. History of hypertension: Says not on medication currently . We will monitor. 4. Deep venous thrombosis prophylaxis: Lovenox. DISPOSITION: Observation in medical floor. Expect to discharge home and follow with family doctor. Job ID: [id number] [facility]
[2022-10-31] MEDS ORDERED: hydrALAZINE HCL 25 MG TAB PO STA (08:28)
--- NOTE | 2022-10-31 10:21 | Ultrasound Report ---
US arterial duplex LE BI CLINICAL HISTORY: pvd? incidental finding of left femoral artery stenosis. COMPARISON STUDY: CT of the abdomen and pelvis October 30, 2022. TECHNIQUE: Ankle to brachial indices were obtained. Grayscale, color and duplex Doppler sonography of the arterial systems of both lower extremities was then performed. FINDINGS: The right ankle-brachial index measured 1.09 when using the dorsalis pedis and 1.17 when us ing the posterior tibial artery. The left ankle to brachial index measured 1.18 when using the dorsal is pedis and 1.16 when using the posterior tibial artery. A mildly elevated peak systolic velocity wi thin the left common femoral artery of 175 cm/s corresponds to the calcified plaque with associated s tenosis on CT October 30, 2022. This results in approximate 70% stenosis. However, there is biphasic suly w distal to this site. No additional elevated velocities within the left lower extremity are noted. T here is mild plaque within the bilateral lower extremities. There is biphasic flow throughout the rig ht lower extremity. No vessel occlusion is identified. IMPRESSION: 1. Patent lower extremity vessels. Biphasic flow throughout the lower extremities. 2. Approximate 70% stenosis of the left common femoral artery, as shown on CT of October 30, 2022. Howev er, biphasic flow distal to this site with a normal left ankle-brachial index. 3. Normal bilateral ankle brachial indices. 4. Focal moderate calcified plaque within the left common femoral artery which results in stenosis. O therwise, mild plaque within the lower extremities. ACT 112: Negative or not required by law. Electronically signed by: Deangelo Virk M.D. 10/31/2022 10:19 AM
--- NOTE | 2022-10-31 16:41 | Electrocardiogram Report ---
Test Reason : Blood Pressure : / mmHG Vent. Rate : 058 BPM Atrial Rate : 058 BPM P-R Int : 154 ms QRS Dur : 104 ms QT Int : 470 ms P-R-T Axes : 046 000 062 degrees QTc Int : 461 ms Sinus bradycardia Otherwise normal ECG When compared with ECG of 06-FEB-2019 10:17, Premature ventricular complexes are no longer Present Confirmed by Corey Payne ([id number]) on 10/31/2022 4:41:20 PM Referred By: Souleymane Reyes Confirmed By:Kelvin Payne
[2022-10-31] MEDS: hydrALAZINE HCL 25 MG TAB PO SCH (17:09)
[2022-10-31 20:17] LABS: Adenovirus F 40/41 PCR Not Detected (NotDetected); Astrovirus PCR Not Detected (NotDetected); Campylobacter PCR Not Detected (NotDetected); Cryptosporidium PCR Not Detected (NotDetected); Cyclospora cayetanensis PCR Not Detected (NotDetected); Entamoeba histolytica PCR Not Detected (NotDetected); Enteroaggregative E.coli(EAEC) Not Detected (NotDetected); Enteropathogenic E.coli (EPEC) Not Detected (NotDetected); Enterotoxigenic E.coli (ETEC) Not Detected (NotDetected); Giardia lamblia PCR Not Detected (NotDetected); Norovirus GI/GII PCR Not Detected (NotDetected); Plesiomonas shigelloides PCR Not Detected (NotDetected); Rotavirus A PCR Not Detected (NotDetected); Salmonella PCR Not Detected (NotDetected); Sapovirus PCR Not Detected (NotDetected); Shiga-like Toxin E.coli (STEC) Not Detected (NotDetected); Shigella/Enteroinvasive E.coli Not Detected (NotDetected); Vibrio cholerae PCR Not Detected (NotDetected); Vibrio species PCR Not Detected (NotDetected); Yersinia enterocolitica PCR Not Detected (NotDetected)
[2022-10-31] MEDS ORDERED: hydrALAZINE HCL 25 MG TAB PO SCH (21:00)
[2022-11-01] MEDS: ENOXAPARIN INJ 40 MG/0.4 ML SYR SQ SCH (05:30)
[2022-11-01] MEDS: hydrALAZINE HCL 25 MG TAB PO SCH (08:39)
[2022-11-01] MEDS ORDERED: LOSARTAN POTASSIUM 25 MG TAB PO STA (10:42)
--- NOTE | 2022-11-01 10:54 | Discharge Summary ---
Discharge Summary Date of Service November 01, 2022 Notes For Next Care Provider Pt admitted for likely viral gastroenteritis. Symptoms resolved with supportive care. His blood pressure was elevated during hospital day. His losartan was resumed. His losartan may need titrated if still remains elevated. Incidental finding on imaging reveals a 70% stenosis of his L MATCH MARKER. This was discussed with Vascular Becky Naik PA-C who is going to arrange outpatient follow up for this. Medication Changes From Visit Resume losartan 25mg daily. Admission HPI Per Admitting Provider HISTORY OF PRESENT ILLNESS: This is an 82-year-old male with past medical history significant for Schatzki ring gout, hypertension, presents with nausea, vomiting, and abdominal pain. The patient says nausea and vomiting started in the morning and he also developed some diarrhea. He took Imodium and that resolved the diarrhea, but he still has a lot of right lower quadrant abdominal pain, which prompted him to come to the ER. In the ER, after pain medications and antiemetics , he is feeling much better. He thinks he can eat food in the morning, resting comfortably and hemodynamically stable. Denies any chest pain, no shortness of breath, no cough, no fevers, no headache, no blurred visions, no earache, no runny nose, no sore throat. Normal bowel and bladder movements. No leg/calf pain on ambulation. Admission Exam Per Admitting Provider PHYSICAL EXAMINATION: GENERAL: The patient is of moderate build, not in acute distress. VITAL SIGNS: Temperature 36.9, pulse 102, respiratory rate 16, blood pressure 188/94, oxygen 95% on room air. HEENT: Pupils equal, round and reactive to light. Oral mucosa moist. NECK: No JVD. No neck masses. CARDIOVASCULAR: S1 and S2 heard. Regular rate and rhythm. No murmur, no gallop. RESPIRATORY SYSTEM: Normal AP diameter. No accessory muscle use. No wheezing or crackles. ABDOMEN: Soft, bowel sounds present. Mild right lower quadrant tenderness. No guarding. No rigidity, no distention. CENTRAL NERVOUS SYSTEM: Cranial nerves II-XII grossly intact, nonfocal. EXTREMITIES: No edema, no erythema. Principal Dx & Hospital Course #1 = Principal Diagnosis (1) Abdominal pain, acute: (2) Nausea vomiting and diarrhea: (3) HTN (hypertension): (4) Femoral artery stenosis, left: Plan Pt is 82 y/o M with PMH HTN, gout, Schatzki ring presented with c/o N/V/D and abdominal pain. His great granddaughter also had similar symptoms. CT a/p was performed which showed no acute abnormality. His Abdominal pain was severe and states worse than any kidney stone in the past. It was a cramping pain in right side of abdomen radiating around to the back. Symptoms resolved with supportive care. His diet was advanced and he received IVF. Incidentally on imaging was noted to have a L MATCH MARKER stenosis. He is asymptomatic of this and has not signs or symptoms of claudication. He also has no signs of lower extremity ulcers. An US was performed which showed biphasic flow distally and normal ankle brachial indices. This was discussed with vascular who will establish with him as an outpatient. On day of discharge he was doing well with out complaint. He was tolerating diet. His blood pressure was elevated. During admission he was started on hydralazine 25mg bid due to elevated blood pressure. He stated that he was recently started on losartan 25mg daily and only was on for 3 days before his symptoms started. He wished to resume the losartan at discharge. Discharge Exam Gen: WD/WN, NAD, A&O x3 HEENT: Normocephalic, atraumatic, conjunctivae moist, sclerae anicteric, mucous membranes moist. Lung: Clear to Auscultation bilaterally, no wheezes/rales/rhonchi Heart: Regular rate, regular rhythm, no murmurs, rubs, or gallops Abdomen: Soft, NT, ND +BS x 4 Extremities: No edema Skin: Warm, no rash, negative turgor. Updated Medication List Medication Instructions Recorded Confirmed Type Lactobacillus 1 cap PO DAILY 10/31/22 10/31/22 History 41-B.animalis,bifid-FOS 111 mg (25 billion cell) capsule (Ultimate Probiotic-10) ascorbic acid (vitamin C) 1,000 mg 1,000 mg PO DAILY 10/31/22 10/31/22 History capsule aspirin 81 mg tablet,delayed 81 mg PO DAILY 10/31/22 10/31/22 History release biotin 10,000 mcg capsule 10,000 mcg PO DAILY 10/31/22 10/31/22 History choline mbe-kib-[id number] 1 tab PO DAILY 10/31/22 10/31/22 History tablet docosahexaenoic ciam-dww-vhy E 1 cap PO BID 10/31/22 10/31/22 History capsule multivitamin with minerals 1 tab PO DAILY 10/31/22 10/31/22 History omeprazole 20 mg tablet,delayed 20 mg PO DAILY 10/31/22 10/31/22 History release phytosterol 500 mg capsule 0 mg PO BID 10/31/22 10/31/22 History psyllium 3.4 gram/5.8 gram oral 3.4 g PO BID 10/31/22 10/31/22 History powder vit A-ynlauojt-cwj palmetto 160 1 cap PO DAILY 10/31/22 10/31/22 History mg-[place] africanum 12.5 mg capsule (Urinozinc Prostate Classic) losartan 25 mg tablet 25 mg PO DAILY 11/01/22 11/01/22 History Hospital Stay Data Consultations 10/31/22 00:08 ED Decision to Admit Stat Diagnostic Imagining Performed Abdomen/Pelvis CT 10/30/22 21:51 Exam(s): CT ABDOMEN + PELVIS With Contrast IV Amt: 88ML OPTIRAY 320 EXAM: CT Abdomen and Pelvis With Intravenous Contrast CLINICAL HISTORY: Reason for exam: mid abd pain. TECHNIQUE: Axial computed tomography images of the abdomen and pelvis with intravenous contrast. Automated exposure control was utilized for the study. A dose lowering technique was utilized adhering to the principles of ALARA. CONTRAST: Patient received 88ML OPTIRAY 320 of IV contrast COMPARISON: No relevant prior studies available. FINDINGS: Lung bases: Unremarkable. No mass. No consolidation. ABDOMEN: Liver: Atrophic left lobe of the liver. Right lobe the liver is unremarkable. Gallbladder and bile ducts: Gallbladder has been removed. No ductal dilation. Pancreas: Unremarkable. No mass. No ductal dilation. Spleen: Unremarkable. No splenomegaly. Adrenals: Unremarkable. No mass. Kidneys and ureters: Unremarkable. No solid mass. No hydronephrosis. Stomach and bowel: Unremarkable. No obstruction. No mucosal thickening. Soft tissue density at the ileocecal valve and cecum is favored to be mixture between stool and small bowel contents rather than a mass as there is prominent stool in the remainder of the colon making an obstructing mass at this location unlikely. PELVIS: Appendix: No findings to suggest acute appendicitis. Bladder: Unremarkable. No mass. Reproductive: Unremarkable as visualized. ABDOMEN and PELVIS: Intraperitoneal space: Unremarkable. No free air. No significant fluid collection. Bones/joints: No acute fracture. No dislocation. Soft tissues: Unremarkable. 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 No abdominal aortic aneurysm. Lymph nodes: Unremarkable. No enlarged lymph nodes. IMPRESSION: No evidence of acute abdominal or pelvic process. 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 Electronically signed by: Valentino Ding M.D. 10/30/22 23:27 PM Duplex Scan Lower Extremity Artery 10/31/22 07:52 US arterial duplex LE BI CLINICAL HISTORY: pvd? incidental finding of left femoral artery stenosis. COMPARISON STUDY: CT of the abdomen and pelvis October 30, 2022. TECHNIQUE: Ankle to brachial indices were obtained. Grayscale, color and duplex Doppler sonography of the arterial systems of both lower extremities was then performed. FINDINGS: The right ankle-brachial index measured 1.09 when using the dorsalis pedis and 1.17 when using the posterior tibial artery. The left ankle to brachial index measured 1.18 when using the dorsalis pedis and 1.16 when using the posterior tibial artery. A mildly elevated peak systolic velocity within the left common femoral artery of 175 cm/s corresponds to the calcified plaque with associated stenosis on CT October 30, 2022. This results in approximate 70% stenosis. However, there is biphasic flow distal to this site. No additional elevated velocities within the left lower extremity are noted. There is mild plaque within the bilateral lower extremities. There is biphasic flow throughout the right lower extremity. No vessel occlusion is identified. IMPRESSION: 1. Patent lower extremity vessels. Biphasic flow throughout the lower extremities. 2. Approximate 70% stenosis of the left common femoral artery, as shown on CT of October 30, 2022. However, biphasic flow distal to this site with a normal left ank le-brachial index. 3. Normal bilateral ankle brachial indices. 4. Focal moderate calcified plaque within the left common femoral artery which results in stenosis. Otherwise, mild plaque within the lower extremities. ACT 112: Negative or not required by law. Electronically signed by: Deangelo Virk M.D. 10/31/2022 10:19 AM Pending Results Patient Have Any Pending Studies at Discharge: No Discharge Instructions Given to Patient (Per Discharging Provider) MEDICATION CHANGES: Restart Losartan 25mg daily. Continue all other medications. SUMMARY OF TEST RESULTS: You were admitted to hospital for nausea, vomiting and abdominal pain. Your symptoms resolved with supportive management. CT scan of abdomen was negative for any acute process. Symptoms likely related to viral illness. On CT scan of abdomen it also noted that you have narrowing of one of the arteries in the top aspect of your left leg. An ultrasound was down which shows 70% narrowing of the femoral artery of left leg. PENDING TEST RESULTS: None RECOMMENDATIONS FOR FOLLOW-UP: Please restart your blood pressure medication prescribed by your Primary Care Provider, Losartan 25mg daily. Recommend checking blood pressure twice daily and keeping a log of this. Take this log with you to your Primary Care appointment so they can adjust medications as needed. You will be receiving a call from [facility] for an appointment to establish care with them. This is for close follow up regarding the narrowing of the artery in your left leg. Please keep this appointment. Please avoid all anti inflammatory medications including ibuprofen, advil, naproxen or motrin. This will cause your blood pressure to elevate. OTHER INSTRUCTIONS: Seek medical attention if you have: * temperature above 101 * chest pain or trouble breathing * abdominal pain, nausea, vomiting * diarrhea, dark stools or bloody stools * any unanswered questions or concerns Call 911 if symptoms are severe. Please take good care of yourself. It has been a pleasure taking care of you. Please take care of yourself. If you have any questions regarding your recent hospitalization please contact [facility] and request Jennifer Ansari @ [phone]. Total Time Total Time Spent Total Time Spent (In Minutes): 35 minutes Supervising Physician Co-Signing Physician Notes Pt seen and examined by me, care coordinated w/ Alirio Corea PA-C, pls refer to her note above for further detail. Patient is currently laying in the bed, in no acute distress. He feels much better, and denies any more abdominal pain, nausea or vomiting. He is tolerating diet. Stool studies were obtained and negative. Patient reported diarrhea on and off for 2 weeks, also reports that his granddaughter had similar symptoms. Left MATCH MARKER stenosis also found on CT, and ultrasound obtained. Discussed with vascular surgery, patient will follow-up with them as outpatient. Currently patient is awake alert oriented answering appropriately. Heart sounds regular, lung sounds clear, abdomen soft nontender nondistended. Plan to discharge home today, and follow-up with primary care physician, and vascular surgery. MD Valeriy
== END 2022-11-01 12:28 | disposition home or self-care (01) ==
LOC: ED 20:59 → 3N 20:59